=== PATIENT | female | born 1965 | race Caucasian/White ===

== ENCOUNTER 2016-09-28 19:47 | Inpatient (IN) | payer OTHER ==
[2016-09-28 20:28] LABS: MANUAL DIFF NEEDED? NO
[2016-09-28 20:41] LABS: BASO% 0.5 % (0.0-0.8); EOS# 0.01 X1000 (0.0-0.7); EOS% 0.2 % (0.0-10.0); HEMATOCRIT 37.7 % (37.0-47.0); HEMOGLOBIN 12.6 g/dL (12.0-16.0); IMM GRAN# 0.04 X1000 (0.0-0.04); IMM GRAN% 0.6 % (0.0-0.5); LYMPH# 1.08 X1000 (1.2-3.4); LYMPH% 16.3 % (20.5-51.1); MCH 31.5 PG (27-31); MCHC 33.4 g/dL (33-37); MCV 94.3 FL (81-99); MONO# 0.69 X1000 (0.11-0.59); MONO% 10.4 % (1.7-9.3); MPV 9.2 FL (7.4-10.4); PLT 201 X1000 (130-400)
[2016-09-28 20:46] LABS: ALLEN TEST YES; BE -5.5 mmoll (-3.0-3.0); BLOOD TYPE ARTERIAL; DRAW SITE R BRACHIAL; METHB 1.6 % (0.0-1.5); O2(CT) 16.1 mL/dL (15.0-23.0); PCO2(98.6) 34 mmHg (35-45); PO2(98.6) 76 mmHg (60-100); SAMPLE BLOOD; SAO2 97.6 % (95.0-100.0); THB 12.1 g/dL (11.5-17.4); pH(98.6) 7.36 (7.35-7.45)
[2016-09-28 20:47] LABS: MODALITY ROOM AIR
[2016-09-28 20:47] LABS: INR 0.91; PROTIME 9.6 Seconds (9.2-11.7); PTT 21.6 Seconds (22.0-36.0)
--- NOTE | 2016-09-28 20:57 | PROVIDER DOCUMENTATION ---
HPI-General Adult - General Source: patient - History of Present Illness -Gen Adult Nature of Presenting Problems: 51 y/o F presents to the ED with weakness. Pt states she does not feel good. Son is presents and states his mom was last seen normal by him 3 days ago. Yesterday he could really tell she was sick. He states about 2 times a year for the last 2 years pt gets sick and has DKA where she is admitted to the ICU. He states his mom has had at least 20 TIA over the past couple years. Location of Pain/Injury: reports: generalized (not feeling well) Pain Radiation: reports: no radiation Quality of Pain: reports: aching Severity: reports: severe Onset/Duration: reports: 2 days ago Timing: reports: still present, getting worse Context/Activities at Onset: reports: none Modifying Factors: improves with: nothing Associated Symptoms: reports: cough, sinus congestion/drainage, nausea, vomiting , weakness, trouble walking. denies: fever/chills Similar Symptoms Previously?: Yes Recently seen or treated by another doctor?: No - Diabetes Related Context Context: reports: high blood sugar <Arsen Richard - Last Filed: 09/28/16 23:08> <Tad Hung - Last Filed: 09/28/16 23:13> - General Chief Complaint: Weakness Stated Complaint: LT FACIAL PAIN, POSS. STROKE Time Seen by Provider: 09/28/16 20:30 Allergies/Adverse Reactions: Patient Allergies Allergy/AdvReac Type Severity Reaction Status Date / Time No Known Allergies Allergy Verified 09/28/16 20:44 Home Medications: Home Medication List Medication Instructions Recorded Confirmed Last Taken Type Insulin Glargine,Hum.rec.anlog 30 unit SQ QAM 09/28/16 09/28/16 09/28/16 07:00 History [Lantus Solostar] Insulin Lispro [Humalog Kwikpen] 30 unit SQ 4XDAY PRN PRN 09/28/16 09/28/16 Unknown History Review of Systems - Adult - REVIEW OF SYSTEMS - ADULT Constitutional: denies: chills, fever Eyes: reports: no symptoms reported Ears, Nose, Mouth & Throat: reports: no symptoms reported Cardiovascular: denies: chest pain, edema Respiratory: reports: cough. denies: shortness of breath Gastrointestinal: reports: abdominal pain, nausea, vomiting. denies: diarrhea Genitourinary: reports: no symptoms reported Musculoskeletal: reports: muscle weakness. denies: back pain, joint pain Integumentary: reports: no symptoms reported Neurological: reports: loss of balance. denies: slurred speech Psychiatric: reports: no symptoms reported Endocrine: reports: no symptoms reported Hematologic/Lymphatic: reports: no symptoms reported Allergic/Immunologic: reports: no symptoms reported All Other Systems: Reviewed and Negative <Arsen Richard - Last Filed: 09/28/16 23:08> Past History - Adult - PAST MEDICAL HISTORY-ADULT Review of Records: reports: Old Records Reviewed, Nursing Assessment Review, Medications Reviewed Major Childhood Illnesses: reports: denies history Cardiovascular: reports: denies history Respiratory: reports: denies history Gastrointestinal: reports: denies history Obstetrical/Gynecological: reports: other (cervical cancer) Genitourinary: reports: denies history Musculoskeletal: reports: denies history Neurological: reports: Seizures/Epilepsy Psychiatric: reports: anxiety, depression Endocrine/Immune: reports: Diabetes Other Conditions: reports: denies history - PRIOR SURGERIES/PROCEDURES Surgical/Procedure History: reports: cholecystectomy, hysterectomy, breast - IMMUNIZATION STATUS Childhood Immunizations: UTD, See Nurse Assessment Flu Vaccine: See Nurse Assessment - FAMILY HISTORY Family History: HTN - SOCIAL HISTORY Smoking: cigarettes, greater than 1 pack/day Alcohol Use Frequency: rarely Living Situation: family <Arsen Richard - Last Filed: 09/28/16 23:08> Physical Exam-General - PHYSICAL EXAM-ADULT Initial Vital Signs Reviewed: Yes - CONSTITUTIONAL General Appearance: alert. negative: appears well (Ill in appearance) - EYES Eyes: PERRL/EOMI (2mm), pink conjunctivae - HEAD, EARS, NOSE, MOUTH & THROAT HENMT: moist mucous membranes, normal ENT inspection, TMs normal, pharynx normal - NECK Neck: non-tender, full range of motion, supple. negative: lymphadenopathy, trachial deviation - RESPIRATORY Respiratory: lungs clear, normal breath sounds, no respiratory distress, no accessory muscle use, increased rate - CARDIOVASCULAR Cardiovascular: normal peripheral pulses, regular rate, rhythm, tachycardia, systolic murmur (2/5) - GASTROINTESTINAL (ABDOMEN) Abdominal Exam: normal bowel sounds, non tender, soft - MUSCULOSKELETAL Back Exam: normal inspection, no CVA tenderness, no vertebral tenderness Extremity: normal range of motion, non-tender, normal gait - SKIN Integumentary: normal color, normal turgor, warm/dry - NEUROLOGIC Neurologic: facial droop (left sided), 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 negative: aphasia - PSYCHIATRIC Psych/Mental Status: normal thought content, normal thought process, oriented x 3, depressed affect <Arsen Richard - Last Filed: 09/28/16 23:08> Progress - PLAN OF CARE/RESULTS Progress/Plan/Lab Results: Orders Category Date Time Status Cardiac Monitoring DIRECTED Care 09/28/16 19:59 Active FSBS [Finger Stick Blood Sugar (ED)] DIRECTED Care 09/28/16 21:31 Active IV Insertion ORDERED Care 09/28/16 19:59 Active Notify MD of + Sepsis Screen NOW Care 09/28/16 19:59 Active CHEST-PORTABLE [RAD] Stat Exams 09/28/16 19:59 Taken HEAD W/O CONTRAST [CT] Stat Exams 09/28/16 21:27 Taken ABG [RESP] Routine Lab 09/28/16 20:35 Completed BLOOD CULTURE [BLDCUL] Stat Lab 09/28/16 20:40 Results CBC WITH DIFF [HEME] Stat Lab 09/28/16 20:15 Completed CK PROFILE [SP CHEM] Stat Lab 09/28/16 20:15 Completed COMPREHENSIVE METABOLIC PANEL [CHEM] Stat Lab 09/28/16 20:15 Completed LACTATE, PLASMA [CHEM] Stat Lab 09/28/16 20:15 Completed PROTIME WITH INR [COAG] Stat Lab 09/28/16 20:15 Completed PTT [COAG] Stat Lab 09/28/16 20:15 Completed TROPONIN T Stat Lab 09/28/16 20:15 Completed Oxygen Device Stat Oth 09/28/16 19:59 Active Vital Signs Temp Pulse Resp BP Pulse Ox 09/28/16 20:48 82 20 132/78 99 09/28/16 19:52 99.0 F 128 H 32 H 123/68 100 No Known Allergies Allergy (Verified 09/28/16 20:44) Insulin Glargine,Hum.rec.anlog [Lantus Solostar] 30 unit SQ QAM 09/28/16 Insulin Lispro [Humalog Kwikpen] 30 unit SQ 4XDAY PRN PRN 09/28/16 Laboratory 09/28/16 09/28/16 09/28/16 21:05 20:35 20:15 WBC RBC Hgb Hct MCV MCH MCHC RDW Std Deviation Plt Count MPV Immature Gran % (Auto) Neut % (Auto) Lymph % (Auto) Crockett % (Auto) Eos % (Auto) Baso % (Auto) Immature Gran # (Auto) Neut # (Auto) Lymph # (Auto) Crockett # (Auto) Eos # (Auto) Baso # (Auto) PT INR PTT (Actin FS) Specimen Type ARTERIAL Sample Site R BRACHIAL pH 7.36 pCO2 34 L pO2 76 HCO3 20.6 Base Excess -5.5 L Oxyhemoglobin 94.4 L ABG O2 Sat (Calculated) 16.1 ABG O2 Saturation 97.6 ABG Carboxyhemoglobin 1.60 ABG Methemoglobin 1.6 H South Test YES A-a O2 Difference 31.0 Total Hemoglobin 12.1 Lactate 2.30 H Blood Gas Modality ROOM AIR FiO2 % 21.0 Sodium Potassium Chloride Carbon Dioxide Anion Gap BUN Creatinine Estimated GFR/1.73 m2 BUN/Creatinine Ratio Glucose Calculated Osmolality Calcium Total Bilirubin AST ALT Alkaline Phosphatase Creatine Kinase Troponin T < 0.010 Total Protein Albumin Globulin Albumin/Globulin Ratio Plasma Lactate Urine Source CATH Urine Color YELLOW Urine Clarity CLEAR Urine pH 5.5 Ur Specific Powder[place] >= 1.030 Urine Protein TRACE A Urine Ketones >=80 A Urine Blood MODERATE A Urine Nitrite NEGATIVE Urine Bilirubin LARGE A Urine Urobilinogen 1.0 Urine Microscopic RBC 10-20 A Urine WBC NEGATIVE Urine Microscopic WBC <10 Ur Epithelial Cells <10 Urine Bacteria NEGATIVE Urine Glucose 500 A 09/28/16 09/28/16 09/28/16 20:15 20:15 20:15 WBC RBC Hgb Hct MCV MCH MCHC RDW Std Deviation Plt Count MPV Immature Gran % (Auto) Neut % (Auto) Lymph % (Auto) Crockett % (Auto) Eos % (Auto) Baso % (Auto) Immature Gran # (Auto) Neut # (Auto) Lymph # (Auto) Crockett # (Auto) Eos # (Auto) Baso # (Auto) PT 9.6 INR 0.91 PTT (Actin FS) 21.6 L Specimen Type Sample Site pH pCO2 pO2 HCO3 Base Excess Oxyhemoglobin ABG O2 Sat (Calculated) ABG O2 Saturation ABG Carboxyhemoglobin ABG Methemoglobin South Test A-a O2 Difference Total Hemoglobin Lactate Blood Gas Modality FiO2 % Sodium 138 Potassium 4.2 Chloride 89 L Carbon Dioxide 19 L Anion Gap 30 BUN 25 H Creatinine 1.6 H Estimated GFR/1.73 m2 34 BUN/Creatinine Ratio 16 Glucose 128 H Calculated Osmolality 282 Calcium 9.1 Total Bilirubin 0.26 AST 54 H ALT 58 H Alkaline Phosphatase 227 H Creatine Kinase 29 Troponin T Total Protein 6.9 Albumin 4.0 Globulin 2.9 Albumin/Globulin Ratio 1.4 Plasma Lactate 4.1 H Urine Source Urine Color Urine Clarity Urine pH Ur Specific Powder[place] Urine Protein Urine Ketones Urine Blood Urine Nitrite Urine Bilirubin Urine Urobilinogen Urine Microscopic RBC Urine WBC Urine Microscopic WBC Ur Epithelial Cells Urine Bacteria Urine Glucose 09/28/16 20:15 WBC 6.64 RBC 4.00 L Hgb 12.6 Hct 37.7 MCV 94.3 MCH 31.5 H MCHC 33.4 RDW Std Deviation 13.9 Plt Count 201 MPV 9.2 Immature Gran % (Auto) 0.6 H Neut % (Auto) 72.0 Lymph % (Auto) 16.3 L Crockett % (Auto) 10.4 H Eos % (Auto) 0.2 Baso % (Auto) 0.5 Immature Gran # (Auto) 0.04 Neut # (Auto) 4.79 Lymph # (Auto) 1.08 L Crockett # (Auto) 0.69 H Eos # (Auto) 0.01 Baso # (Auto) 0.03 PT INR PTT (Actin FS) Specimen Type Sample Site pH pCO2 pO2 HCO3 Base Excess Oxyhemoglobin ABG O2 Sat (Calculated) ABG O2 Saturation ABG Carboxyhemoglobin ABG Methemoglobin South Test A-a O2 Difference Total Hemoglobin Lactate Blood Gas Modality FiO2 % Sodium Potassium Chloride Carbon Dioxide Anion Gap BUN Creatinine Estimated GFR/1.73 m2 BUN/Creatinine Ratio Glucose Calculated Osmolality Calcium Total Bilirubin AST ALT Alkaline Phosphatase Creatine Kinase Troponin T Total Protein Albumin Globulin Albumin/Globulin Ratio Plasma Lactate Urine Source Urine Color Urine Clarity Urine pH Ur Specific Powderly Urine Protein Urine Ketones Urine Blood Urine Nitrite Urine Bilirubin Urine Urobilinogen Urine Microscopic RBC Urine WBC Urine Microscopic WBC Ur Epithelial Cells Urine Bacteria Urine Glucose - REASSESSMENT Reassessment #1 Time Reassessed: 23:01 Status: unchanged (Pt remains slow to answer questions. Facial droop on the left is the same) - EKG 1 Time of EKG reading by physician:: 20:09 EKG Read and Signed by:: Tad Hung EKG Interpretation (*Must complete 3 of following elements*): Abnormal ( [place]) Rate: 89 Rhythm: NSR Comments: possible left atrial enlargement - XRAY 1 XRAY Study: Chest Impression: Normal XRAY Interpretation: Per Dr Hung, No acute disease - CT/MRI 1 CT Study: Head Impression: Abnormal CT Results: No blood, chronic ischemic areas, minimal sinusitis - CONSULTS/PCP/HOSPITALIST Notification #1 *Consult/PCP/Hospitalist*: dr tellez Time Discussed: 23:08 Reason/Comments: admission; Accepts Consult Disposition: Will see in ED <Arsen Richard - Last Filed: 09/28/16 23:08> Departure <Arsen Richard - Last Filed: 09/28/16 23:08> - Departure Time of Disposition Order: 23:11 Certified Medical Emergency: Emergent <Tad Hung - Last Filed: 09/28/16 23:13> - Departure DIAGNOSIS: Altered mental status Qualifiers: Altered mental status type: disorientation Qualified Code(s): R41.0 - Disorientation, unspecified Disposition: ADMITTED INPATIENT 09 Condition: Fair Referrals: Jose Figueroa Jr, MD [Primary Care Provider] - Attestation - Scribe Verification/Attestation Scribe:: Arsen Richard Acting as Scribe for:: Tad Hung Scribe documention review:: This chart was documented by a scribe and accurately reflects the service the provider performed and the decisions made by the provider. <Arsen Richard - Last Filed: 09/28/16 23:08> Physician Attestation
[2016-09-28 21:03] LABS: CALCIUM 9.1 mg/dL (8.8-10.2); POTASSIUM 4.2 mmol/L (3.5-5.1); TOTAL BILIRUBIN 0.26 mg/dL (0.20-1.00); TOTAL PROTEIN 6.9 g/dL (6.3-8.3)
[2016-09-28 21:06] LABS: URINE SOURCE CATH
[2016-09-28 21:12] LABS: BILIRUBIN URINE LARGE (NEGATIVE); BLOOD URINE MODERATE (NEGATIVE); CLARITY CLEAR (CLEAR); COLOR YELLOW; GLUCOSE URINE 500 mg/dL (NEGATIVE); LEUKOCYTES URINE NEGATIVE (NEGATIVE); NITRITE URINE NEGATIVE (NEGATIVE); PH URINE 5.5; PROTEIN URINE TRACE mg/dL (NEGATIVE); SP GRAVITY URINE >= 1.030
[2016-09-28 21:18] LABS: URINE EPITHELIAL CELLS <10 /HPF (<10); URINE WBC <10 /HPF (<10)
[2016-09-28] MEDS ORDERED: NS 1,000 ML IV ONE (23:34)
[2016-09-28] MEDS ORDERED: ZOFRAN IV ONE (23:34)
[2016-09-28] MEDS ORDERED: MAALOX PLUS LIQUID PO ONE (23:35)
[2016-09-29] MEDS ORDERED: HUMULIN R IV ONE (00:29)
[2016-09-29] MEDS ORDERED: ZOFRAN IV PRN (00:29)
[2016-09-29] MEDS ORDERED: MAGNESIUM SULFATE 2 GM/S.W.I. 50 ML IV PRN (00:29)
[2016-09-29] MEDS ORDERED: TYLENOL PR PRN (00:29)
[2016-09-29] MEDS ORDERED: COMPAZINE IV PRN (00:29)
[2016-09-29] MEDS ORDERED: TYLENOL PO PRN (00:29)
[2016-09-29] MEDS ORDERED: D50W SYRINGE IV PRN (00:29)
[2016-09-29] MEDS: SODIUM CHLORIDE 0.9% INJ SCH ×2 (00:45→23:58)
[2016-09-29] MEDS: PROTONIX IV SCH ×2 (00:45→23:58)
[2016-09-29 01:02] LABS: HEMOGLOBIN A1C 9.5 % (4.8-6.0)
[2016-09-29] MEDS: HUMULIN R 100 UNIT in NS 99 ML IV SCH ×6 (01:25→08:13)
[2016-09-29 01:31] LABS: UR AMPHETAMINES QUAL NONE DETECTED (NONE DETECT); UR BARBITUATES QUAL NONE DETECTED (NONE DETECT); UR BENZODIAZEPIN QUAL NONE DETECTED (NONE DETECT); UR CANNABINOIDS QUAL NONE DETECTED (NONE DETECT); UR COCAINE QUAL NONE DETECTED (NONE DETECT); UR METHADONE QUAL NONE DETECTED (NONE DETECT); UR OPIATES QUAL NONE DETECTED (NONE DETECT); UR OXYCODONE QUAL NONE DETECTED (NONE DETECT); UR PCP QUAL NONE DETECTED (NONE DETECT)
--- NOTE | 2016-09-29 04:04 | HISTORY AND PHYSICAL ---
A patient of Dr. Figueroa. REASON FOR ADMISSION: A 2-day history of intractable nausea, vomiting, polyuria, polydipsia and a 1-day history of right-sided facial weakness and slurred speech. HISTORY OF PRESENT ILLNESS: Ms. Mary Carmen Crouch is a 51-year-old lady with a past medical history of type 1 diabetes, recurrent multiple lacunar infarcts, peripheral arterial disease, hyperlipidemia, and tobacco use. She says that for the last couple of days, she has been persistently sick to her stomach, throwing up which was preceded by epigastric pain, nonradiating, crampy, and sharp. She says that the pain is not related to meals. She denies any diarrhea or altered bowel movements. No coffee-grounds or hematemesis with her vomiting spells. They have getting worse over the last 24 hours. She reports her blood sugars were elevated and she has been adjusting her insulin accordingly. Admits to polyuria and polydipsia over the last 2 or 3 days. Denies any headaches but admits to having intermittent blurred vision and occasional diplopia. She was brought in by a family member who was concerned about her slurred speech and some degree of confusion. Since she has been in the ER, she has had a CT scan of her head done which was not acute process. No change in her prior CT scan findings. CT scan showed her old multiple chronic ischemic microvascular changes, mainly in the right parietal area. REVIEW OF SYSTEMS: The patient denies any cardiorespiratory complaints. No focal weakness, numbness, or tingling other than the aforementioned facial weakness and slurred speech. She denies any dysphagia. Sensorium has improved since she has been in the ER. She is more awake and alert. No genitourinary complaints. No rash or arthralgias. Twelve system review was done, positive findings per HPI. ALLERGIES: None. MEDICATIONS: She apparently is only taking lispro 30 units with meals and Lantus 30 units in the morning. SURGICAL HISTORY: Notable for hysterectomy, cholecystectomy, left CEA, and breast augmentation. FAMILY HISTORY: Notable for type 1 and 2 diabetes in first-degree relatives, a brain aneurysm, and coronary artery disease. No cancer in first-degree relatives. SOCIAL HISTORY: She lives with her son. She is disabled. Smokes about half to one pack a day. No alcohol or illicit drug use. LABORATORY WORK: A 6000 white count, hemoglobin and hematocrit 12 and 37, platelets 201,000 with normal differential. Bicarb is 19, anion gap is 30, BUN is 25, creatinine 1.6. Her usual baseline is about 0.8. Glucose 128. AST 54, ALT 58, alkaline phosphatase 227. Cardiac enzymes negative. Lactate 4.1. PT and PTT normal. Urinalysis shows greater than 80 ketones, moderate blood, large bilirubin, and 10-20 RBCs. Arterial blood gas shows pH of 7.36, pCO2 34, PO2 76. PHYSICAL EXAMINATION: VITAL SIGNS: Blood pressure is 123/68, heart rate is 128, temperature is 99 degrees, respirations 32, 100% on room air. GENERAL: She is a thin, young, woman who is in mild distress from her nausea. She is alert and oriented to person, place, and time. She has somewhat anxious affect and depressed mood. HEENT: Head is normocephalic, atraumatic. Eye examination is anicteric and not pale. 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 Pupils are reactive to light. She has right upper motor neuron facial palsy. No focal weakness of her upper or lower extremities. No pronator drift. Her speech is slightly slurred. ENT and oropharyngeal exam is grossly normal. No central cyanosis. NECK: Supple. No JVD or carotid bruit. No thyromegaly. CHEST: Clear to auscultation with good entry in both lung corrigan. CARDIOVASCULAR: First and second heart sounds heard. No gallops, murmurs, or rubs. Rhythm is regular. ABDOMEN: Scaphoid, soft, with my mild to moderate epigastric tenderness. Abdomen is soft. No rebound, no guarding. No mass was appreciated. Bowel sounds are normal. RECTAL: Examination deferred at this time. EXTREMITIES: Neurovascularly intact. No edema, clubbing, cyanosis. NEUROLOGIC: Examination is grossly intact. No focal deficits. SKIN: Intact with no breakdown, lesions, or erythema. MUSCULAR: Examination is grossly normal. ASSESSMENT: 1. Early diabetic ketoacidosis. 2. Probable early diabetic gastroparesis. 3. Acute kidney injury secondary to #1. 4. Transaminitis, query etiology. 5. Intractable nausea and vomiting secondary to diabetic ketoacidosis and possible gastroparesis. 6. Possible gastritis. PLAN: At this time, we will start patient on DKA protocol but be more conservative with its use. I do believe patient has very early onset DKA and we can initiate DKA protocol. Hopefully, within the next 12 hours, she should be out of DKA. We will hydrate patient per protocol. Patient does have signs of lactic acidosis which I do believe is due to depleted intravascular volume and not sepsis. The patient's neurological signs are probably consistent with some degree of neural glycopenia which is secondary to the fact that this patient may have been used to having very elevated blood sugars for a chronic period of time and even at so-called "normal levels", she might manifest neurological signs of hypoglycemia. We will start the patient on IV PPIs and antiemetics to treat her gastrointestinal symptoms. We will also follow labs closely per protocol and replete any electrolyte derangements. Lovenox will be provided for DVT prophylaxis. A1c has been ordered and if it is grossly elevated, her insulin requirements will need to be adjusted.
[2016-09-29] MEDS: D5 NS 1,000 ML IV SCH ×2 (04:40→05:56)
[2016-09-29] MEDS: LOVENOX SUBQ SCH (06:00)
--- NOTE | 2016-09-29 06:12 | EKG Report ---
Test Performed on : 09/28/2016 8:09:40 PM Test Reason : NO order in [employer] Blood Pressure : / mmHG Vent. Rate : 089 BPM Atrial Rate : 089 BPM P-R Int : 132 ms QRS Dur : 072 ms QT Int : 348 ms P-R-T Axes : 065 071 066 degrees QTc Int : 423 ms Normal sinus rhythm. Possible Left atrial enlargement Borderline ECG When compared with ECG of 13-MAY-2016 13:16, No significant change was found Unconfirmed Result
--- NOTE | 2016-09-29 07:39 | Diag Imaging Result Document ---
PROCEDURE NAME: HEAD W/O CONTRAST - 09/28/2016 CT BRAIN WITHOUT: COMPARISON: Compared to 03/17/2016. FINDINGS: No parenchymal hemorrhage. No epidural or subdural hematoma. No subarachnoid hemorrhage. Old areas of encephalomalacia in posterior right parietal lobe and superior left parietal lobe. No mass identified on this noncontrasted exam. No hydrocephalus. No sinus opacification although there is mucus in the ethmoid and right maxillary sinuses. IMPRESSION: 1. No hemorrhage. 2. Chronic ischemic changes. 3. Mild sinusitis. A preliminary report was given at 10:04 p.m.
--- NOTE | 2016-09-29 08:04 | Diag Imaging Result Document ---
PROCEDURE NAME: CHEST-PORTABLE - 09/28/2016 PORTABLE CHEST: COMPARISON: 05/12/2016. FINDINGS: The lungs are well expanded. The heart is not enlarged. The vessels are not distended. No pneumonia. No pleural effusions identified. IMPRESSION: Negative chest.
[2016-09-29] MEDS ORDERED: ZOFRAN ODT PO PRN (09:27)
[2016-09-29] MEDS: TAMIFLU PO SCH ×2 (10:30→21:04)
[2016-09-29] MEDS: ASPIRIN PO SCH (10:31)
[2016-09-29 10:33] LABS: CALCIUM 7.7 mg/dL (8.8-10.2); MAGNESIUM 1.9 mg/dL (1.5-2.7); POTASSIUM 3.7 mmol/L (3.5-5.1)
[2016-09-29] MEDS: 1/2 NS 1,000 ML IV SCH ×2 (10:35→20:49)
[2016-09-29] MEDS: TAZIDIME 1 GM in NS 50 ML IV SCH ×2 (10:40→17:37)
--- NOTE | 2016-09-29 10:45 | Diag Imaging Result Document ---
PROCEDURE NAME: CHEST-2 VIEWS - 09/29/2016 TWO VIEWS OF THE CHEST: FINDINGS: There is no evidence of acute cardiac or pulmonary disease. Compared to 09/28/2016, there has been no significant change. IMPRESSION: No acute disease.
[2016-09-29] MEDS: HUMULIN R SUBQ SCH ×4 (12:00→22:53)
[2016-09-29] MEDS ORDERED: HUMULIN R ONE (12:04)
[2016-09-29] MEDS ORDERED: PNEUMOVAX 23 IM ONE (16:30)
[2016-09-30] MEDS: TAZIDIME 1 GM in NS 50 ML IV SCH ×3 (01:37→17:40)
[2016-09-30] MEDS: 1/2 NS 1,000 ML IV SCH ×2 (05:34→19:36)
[2016-09-30] MEDS: LOVENOX SUBQ SCH (05:34)
[2016-09-30] MEDS: HUMULIN R SUBQ SCH ×4 (06:31→20:44)
[2016-09-30] MEDS: ASPIRIN PO SCH (09:11)
[2016-09-30] MEDS: TAMIFLU PO SCH (09:13)
[2016-09-30] MEDS ORDERED: DUONEB (A & A) INH PRN (09:23)
--- NOTE | 2016-09-30 09:51 | PROGRESS NOTE ---
DATE: 09/30/2016 SUBJECTIVE: The patient is feeling better. She is hungry. OBJECTIVE: Vital Signs: Blood pressure is 132/78, respirations 16, pulse 61, temperature 97.5 degrees Fahrenheit. HEENT: She is normocephalic except that she has left-sided facial weakness. Neck: Supple. Lungs: The lungs have rales in the bases with wheezing in the right base. Heart: Regular rate and rhythm without murmurs, gallops, or friction rubs. Abdomen: Soft. Active bowel sounds. No organomegaly or tenderness. Neurological: Shows a little weakness in her right upper and right lower extremities, but she has had previous strokes. She does have facial weakness on the left side. She has had some confusion and is still confused about certain things today. She could not tell me what medications at home were. She says that she is having a hard time remembering. I think most likely she has had a CVA that just has not shown up as a new one on her CT scan. ASSESSMENT: 1. Cerebrovascular accident. 2. Insulin dependent diabetes mellitus. 3. Bronchitis. 4. Bronchospasm. 5. Peripheral vascular disease. 6. Hyperlipidemia. PLAN: We will consult neurology. We will move her to the floor and out of the unit. We will continue IV antibiotics. We will start some breathing treatments. We will advance her diet slowly, as blood sugars are fairly stable.
[2016-09-30] MEDS ORDERED: INSULIN PEN NEEDLES ONE (09:54)
[2016-09-30] MEDS: LANTUS SUBQ SCH (10:02)
[2016-09-30 10:42] LABS: CALCIUM 7.8 mg/dL (8.8-10.2); MAGNESIUM 1.9 mg/dL (1.5-2.7); POTASSIUM 4.8 mmol/L (3.5-5.1)
--- NOTE | 2016-09-30 12:13 | CONSULTATION ---
DATE OF CONSULTATION: 09/30/2016 The patient is in ICU Bed 14. HISTORY OF PRESENT ILLNESS: Ms. Crouch is 51 years old, and she has a complicated past neurologic history. Prior to admission this time, she reports feeling ill for a day or 2 with some nausea and vomiting, and she attributed that to catching a virus from her grandson. She felt weak all over and noticed some blurred vision and headache. She presented to the hospital. She was found to have mild right-sided weakness. She has a past neurologic history of unilateral facial drooping 1 year ago. She has had some altered mental status and dysarthria associated with metabolic problems including DKA. The facial drooping has been more prominent in the past associated with DKA. She has brain imaging showing evidence of old left hemisphere infarction on prior MRI. CT scan this admission shows nothing focal or acute. Carotid ultrasound showed significant stenosis on the left during prior admission. She continues to smoke cigarettes. She has diabetes mellitus and is not aggressive with that management. Her blood sugars this admission have ranged from 67 to mid 300s. A1c was 9.5%. She has a few other metabolic findings, including slightly elevated BUN and creatinine, but nothing that generally would cause encephalopathy. Urine drug screen was all negative this admission. PHYSICAL EXAMINATION: On exam, Ms. Crouch is awake, alert, attentive. Speech is slightly dysarthric, but easily understood. She has full lateral and vertical eye movements on my confrontational exam. Visual field is full, tested very grossly by confrontational finger counting. 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 Forehead wrinkling is good bilaterally. She did not use her right limbs as aggressively as the left but with distraction, I am not certain there is a true motor deficit in the right limbs. She did well on [id number] testing bilaterally. She reports diminished pinprick appreciation over the right leg distally with some inconsistencies. I did not test her gait. Reflexes are trace at the ankles and 1+ at the wrists. IMPRESSION: 1. Significant risk factors for cerebrovascular ischemic problems, including imaging evidence of previous left hemisphere infarction. 2. Question of acute ischemic central nervous system event. PLAN: Negative CT is reassuring. I think brain MRI would be helpful in ruling out new ischemic lesion. Of course, she needs to be aggressive with management of blood sugar and medical problems, and she needs to quit smoking cigarettes. Thanks for asking me to see Ms. Crouch. MTDD
--- NOTE | 2016-09-30 13:54 | Diag Imaging Result Document ---
PROCEDURE NAME: MRI BRAIN W W/O CONTRAST - 09/30/2016 MRI OF THE BRAIN WITH AND WITHOUT GADOLINIUM: FINDINGS: There is extensive subcortical white matter hyperintensity on the FLAIR and T2 weighted images in the anterior parietal and adjacent frontal cortex on the convexity of the left hemisphere and in the posterior parietal cortex on the right side. Other patchy areas of increased T2-weighted signal intensities present in the white matter of both hemispheres. These findings were also present on 11/18/2015. There is a focus of restricted diffusion in the posterior centrum semiovale region on the right. This was not present at the time of the previous study, although the previous study demonstrated an area of restricted diffusion on the left side which is no longer identifiable. There is no evidence of abnormal gadolinium enhancement. The area of restricted diffusion on the right corresponds to an area of relatively decreased signal intensity on the T1-weighted images. This is increased in T2 weighted signal intensity, however, and was not identifiable on the previous study of 11/18/2015. IMPRESSION: New lacunar infarction in the right centrum semiovale.
[2016-09-30 14:56] LABS: CALCIUM 7.9 mg/dL (8.8-10.2); MAGNESIUM 1.6 mg/dL (1.5-2.7); POTASSIUM 3.9 mmol/L (3.5-5.1)
[2016-09-30 20:52] LABS: CALCIUM 7.7 mg/dL (8.8-10.2); MAGNESIUM 1.6 mg/dL (1.5-2.7); POTASSIUM 4.2 mmol/L (3.5-5.1)
[2016-10-01] MEDS: SODIUM CHLORIDE 0.9% INJ SCH (00:30)
[2016-10-01] MEDS: PROTONIX IV SCH (00:30)
[2016-10-01] MEDS: TAZIDIME 1 GM in NS 50 ML IV SCH ×3 (02:09→17:11)
[2016-10-01] MEDS: LOVENOX SUBQ SCH (05:52)
[2016-10-01] MEDS: 1/2 NS 1,000 ML IV SCH ×2 (05:52→17:13)
[2016-10-01] MEDS: HUMULIN R SUBQ SCH ×4 (06:24→20:04)
[2016-10-01] MEDS: LANTUS SUBQ SCH (08:49)
[2016-10-01] MEDS ORDERED: LANTUS SUBQ SCH (09:12)
[2016-10-01] MEDS: ASPIRIN PO SCH (09:34)
--- NOTE | 2016-10-01 10:49 | PROGRESS NOTE ---
DATE: 10/01/2016 SUBJECTIVE: The patient is feeling a little bit better. Speech seems a little bit better. The left-sided facial weakness seems somewhat improved. She does show a new lacunar infarct on the right side on her MRI scan. OBJECTIVE: Blood pressure 136/62, respirations 16, pulse 62, temperature 98.5 degrees Fahrenheit. HEENT: She is normocephalic, atraumatic. PERRLA. Throat clear. Lungs have rales in the bases bilaterally. Heart: Regular rate and rhythm without murmurs, gallops, or friction rubs. Abdomen soft. Active bowel sounds. No organomegaly or tenderness. Neurologic: Exam shows weakness in the left facial area. ASSESSMENT: 1. Cerebrovascular accident. 2. Uncontrolled diabetes. 3. Bronchitis. PLAN: Continue care. Carotid flow studies have been ordered by Neurology. She did have some just a few months ago as she had a carotid endarterectomy not too long ago. Continue support.
--- NOTE | 2016-10-01 11:23 | Carotid Study ---
DATE: 09/30/2016 PROCEDURE: Carotid duplex imaging. REFERRING PHYSICIAN: Dr. Ram INTERPRETING PHYSICIAN: Dr. Astudillo TECH: Marcos INDICATIONS: Previous comparison from 03/17/2016. 1. Recent left carotid endarterectomy (04/06/2016). 2. History of cerebrovascular accident. OBSERVED DATA RIGHT LEFT Brachial Blood Pressure Carotid Pulse Bruits: Carotid/Sub DIAGRAM OF ULTRASOUND IMAGING R L RIGHT INT EXT INT EXT LEFT Man (cm/s) Man (cm/s) Subclavian 107/0 Subclavian 113/0 CCA Proximal 94/11 CCA Proximal 90/12 CCA Distal 79/13 CCA Distal 82/12 Bulb 75/15 Bulb 113/4 ICA Proximal 73/10 ICA Proximal 66/21 ICA Mid 65/19 ICA Mid 62/19 ICA Distal 48/14 ICA Distal 68/22 ECA 136/7 ECA 168/4 Vertebral 38/0 A Vertebral 34/6 A ICA/CCA Ratio 0.78 ICA/CCA Ratio 0.76 % Stenosis 0 to 39 % Stenosis 0 to 39 FINDINGS: No hemodynamically significant flow limiting stenosis noted to the right side which is stable from previous study. The left side, which had the previous carotid endarterectomy, is widely patent. Both vertebral arteries were antegrade flow. PHYSICIAN INTERPRETATION: Patent left carotid endarterectomy without hemodynamically significant flow limiting stenosis noted to bilateral carotid arteries. Both vertebral arteries are antegrade flow.
[2016-10-02] MEDS: 1/2 NS 1,000 ML IV SCH (00:48)
[2016-10-02] MEDS: PROTONIX IV SCH (00:48)
[2016-10-02] MEDS: SODIUM CHLORIDE 0.9% INJ SCH (00:48)
[2016-10-02] MEDS: TAZIDIME 1 GM in NS 50 ML IV SCH (01:02)
[2016-10-02] MEDS ORDERED: ZOFRAN ODT PO PRN (06:23)
[2016-10-02] MEDS ORDERED: TYLENOL PO PRN (06:36)
[2016-10-02] MEDS ORDERED: TYLENOL PR PRN (06:36)
[2016-10-02] MEDS ORDERED: DUONEB (A & A) INH PRN (06:37)
[2016-10-02] MEDS ORDERED: D50W SYRINGE IV PRN (06:40)
[2016-10-02] MEDS ORDERED: ZOFRAN IV PRN (06:42)
[2016-10-02] MEDS ORDERED: PNEUMOVAX 23 IM ONE (06:45)
[2016-10-02] MEDS ORDERED: LOVENOX SUBQ SCH (07:00)
[2016-10-02] MEDS ORDERED: HUMULIN R SUBQ SCH (07:00)
[2016-10-02] MEDS ORDERED: 1/2 NS 1,000 ML IV SCH (07:00)
[2016-10-02 08:35] VITALS: BP 157/64
[2016-10-02] MEDS ORDERED: ASPIRIN PO SCH ×2 (09:00→09:51)
[2016-10-02] MEDS ORDERED: TAZIDIME 1 GM in NS 50 ML IV SCH (10:00)
--- NOTE | 2016-10-03 05:04 | DISCHARGE SUMMARY ---
ADMISSION DATE: 09/29/2016 DISCHARGE DATE: 10/02/2016 FINAL DIAGNOSES: 1. Cerebrovascular accident in the right centrum semiovale. 2. Bronchitis. 3. Altered mental status. 4. Uncontrolled adult onset diabetes mellitus. 5. Impending diabetic ketoacidosis. 6. Peripheral vascular disease. Patient will be going home on her regular home medications, but will increase her aspirin to 325 mg daily and we will place her on doxycycline 100 mg p.o. b.i.d. for 10 days for her bronchitis. PRESENT ILLNESS: The patient came in with altered mental status, nausea, and vomiting. She had left-sided facial weakness. She did have a cerebrovascular accident according to the MRI scan. We know she has peripheral vascular disease. Did carotid flow studies and found nothing new. She had a recent left carotid endarterectomy. Because she was feeling so tired, she told me she was aching all over, we did check her for influenza but that was negative. Blood cultures were negative. Anion gap was 30. Initially she was placed on an insulin drip because urinalysis showing greater than 80 ketones and with an anion gap I thought that she has an impending diabetic ketoacidosis. They stopped that fairly quickly as she remained with fairly normal blood sugars. She has continued to do well with her blood sugars. While in the hospital she did develop some bronchitis with some rales in her chest and a little bit wheezing, that is just about resolved. Lungs are clear today. Her intractable nausea when went very quickly. The facial weakness has improved considerably. Consultation was made with Dr. Ram of Neurology. Overall, has improved. The patient is eager to go home. She is eating now. We will discharge her home and see her back in the office later this week. She is to call for an appointment on Monday, which is tomorrow.
[2016-10-03] MEDS ORDERED: PROTONIX IV SCH (06:00)
[2016-10-03] MEDS ORDERED: SODIUM CHLORIDE 0.9% INJ SCH (06:00)
== END 2016-10-02 12:14 | disposition home or self-care (01) | DRG 65 ==
LOC: ED 19:47 → EDIPHOLD 09-29 00:28 → ICU 09-29 13:30 → 4N 10-02 01:10
PROVIDERS: ADMIT Internal Medicine; ATTEND Emergency Medicine
DX: I63.9 Cerebral infarction, unspecified (principal); N17.9 Acute kidney failure, unspecified; E87.2 Acidosis; E10.51 Type 1 diabetes mellitus with diabetic peripheral angiopathy without gangrene; G81.91 Hemiplegia, unspecified affecting right dominant side; E10.65 Type 1 diabetes mellitus with hyperglycemia; E78.5 Hyperlipidemia, unspecified; J40 Bronchitis, not specified as acute or chronic; R29.810 Facial weakness; R47.1 Dysarthria and anarthria; E86.9 Volume depletion, unspecified; F17.210 Nicotine dependence, cigarettes, uncomplicated; Z79.899 Other long term (current) drug therapy; Z79.4 Long term (current) use of insulin; Z86.73 Personal history of transient ischemic attack (TIA), and cerebral infarction without residual deficits; Z83.3 Family history of diabetes mellitus; Z82.49 Family history of ischemic heart disease and other diseases of the circulatory system
CPT/HCPCS: 70450; 70553; 71010; 71020; 80048; 80053; 80061; 81001; 82550; 82805; 82948; 83036; 83605; 83721; 83735; 84100; 84484; 85025; 85610; 85730; 87040; 87088; 87804; 93005; 93880; 94640; 94761; 96361; 96365; 96366; 96367; 96368; 96372; 96375; A9579; C9113; G0480; J0713; J1650; J2405; J7030; J7042; P9612; 80324; 80345; 80346; 80349; 80353; 80358; 80361; 80365; 83992; S0164

== ENCOUNTER 2017-01-30 17:54 | Inpatient (IN) ==
[2017-01-30] MEDS ORDERED: HUMULIN R IV ONE ×3 (18:21→21:39)
[2017-01-30] MEDS ORDERED: NS 1,000 ML IV ONE ×3 (18:22→20:48)
[2017-01-30 18:36] LABS: ALLEN TEST YES; BE -23.5 mmoll (-3.0-3.0); BLOOD TYPE ARTERIAL; DRAW SITE R RADIAL; O2(CT) 17.7 mL/dL (15.0-23.0); PCO2(98.6) 22 mmHg (35-45); PO2(98.6) 91 mmHg (60-100); SAMPLE BLOOD; SAO2 97.5 % (95.0-100.0); THB 13.2 g/dL (11.5-17.4)
[2017-01-30 18:37] LABS: MODALITY ROOM AIR; pH(98.6) 7.03 (7.35-7.45)
[2017-01-30] MEDS ORDERED: HUMULIN R 100 UNIT in NS 100 ML IV SCH (19:30)
[2017-01-30 20:10] LABS: URINE CULTURE NEEDED? NO; URINE MICRO REVIEW NEEDED? NO; URINE SOURCE CATH
[2017-01-30 20:11] LABS: BASO% 0.4 % (0.0-0.8); EOS# 0.01 X1000 (0.0-0.7); EOS% 0.1 % (0.0-10.0); HEMATOCRIT 41.4 % (37.0-47.0); HEMOGLOBIN 12.6 g/dL (12.0-16.0); IMM GRAN# 0.06 X1000 (0.0-0.04); IMM GRAN% 0.4 % (0.0-0.5); LYMPH# 0.96 X1000 (1.2-3.4); LYMPH% 6.6 % (20.5-51.1); MANUAL DIFF NEEDED? NO; MCHC 30.4 g/dL (33-37); MCV 101.7 FL (81-99); MONO% 2.1 % (1.7-9.3); MPV 10.3 FL (7.4-10.4); NEUT% 90.4 % (42.2-75.2); PLT 272 X1000 (130-400); RBC 4.07 XMIL (4.2-5.4)
[2017-01-30 20:18] LABS: ACETONE SERUM MODERATE (NEGATIVE)
[2017-01-30 20:19] LABS: BILIRUBIN URINE NEGATIVE (NEGATIVE); BLOOD URINE NEGATIVE (NEGATIVE); COLOR STRAW; GLUCOSE URINE >1000 mg/dL (NEGATIVE); LEUKOCYTES URINE NEGATIVE (NEGATIVE); NITRITE URINE NEGATIVE (NEGATIVE); PROTEIN URINE NEGATIVE (NEGATIVE); SP GRAVITY URINE 1.019; TURBIDITY URINE CLEAR (CLEAR); UR EPITHELIAL CELLS <10 /HPF (<10); URINE BACTERIA NEGATIVE /HPF; URINE RBC <10 /HPF (<10); URINE WBC <10 /HPF (<10); UROBILINOGEN URINE NORMAL (NORMAL)
[2017-01-30 20:26] LABS: UR AMPHETAMINES QUAL NONE DETECTED (NONE DETECT); UR BARBITUATES QUAL NONE DETECTED (NONE DETECT); UR BENZODIAZEPIN QUAL NONE DETECTED (NONE DETECT); UR CANNABINOIDS QUAL NONE DETECTED (NONE DETECT); UR COCAINE QUAL NONE DETECTED (NONE DETECT); UR METHADONE QUAL NONE DETECTED (NONE DETECT); UR OPIATES QUAL NONE DETECTED (NONE DETECT); UR OXYCODONE QUAL NONE DETECTED (NONE DETECT); UR PCP QUAL NONE DETECTED (NONE DETECT)
--- NOTE | 2017-01-30 20:26 | PROVIDER DOCUMENTATION ---
This chart was entered by Alexsandra Armas Scribe, acting as scribe for Tad Hung MD. HPI-General Adult - General Chief Complaint: High Blood Sugar Stated Complaint: STROKE LIKE SX Time Seen by Provider: 01/30/17 19:03 Source: patient Allergies/Adverse Reactions: Patient Allergies Allergy/AdvReac Type Severity Reaction Status Date / Time No Known Allergies Allergy Verified 09/28/16 20:44 Home Medications: Home Medication List Medication Instructions Recorded Confirmed Last Taken Type Insulin Glargine,Hum.rec.anlog 10 unit SQ QAM 09/28/16 09/30/16 09/28/16 07:00 History [Lantus Solostar] Insulin Lispro [Humalog Kwikpen 24 unit SQ 4XDAY PRN PRN 09/28/16 09/30/16 Unknown History U-100] Insulin Glargine [Lantus] 35 unit SUBQ QHS 09/30/16 09/30/16 Unknown History Losartan [Cozaar] 50 mg PO DAILY 09/30/16 09/30/16 Unknown History Aspirin 325 mg PO DAILY #0 tablet 10/02/16 Unknown Rx Doxycycline [Vibramycin] 100 mg PO DAILY #20 tablet NS 10/02/16 Unknown Rx - History of Present Illness -Gen Adult Nature of Presenting Problems: Pt is a 51 year old female who came to the ED with a cc of left sided facial droop, slurred speech, and vomiting. Pt has a hx of DKA and TIA. Location of Pain/Injury: reports: face Pain Radiation: reports: no radiation Quality of Pain: reports: none Onset/Duration: reports: just prior to arrival Timing: reports: still present Context/Activities at Onset: reports: none Modifying Factors: improves with: nothing Associated Symptoms: reports: nausea, vomiting, weakness Similar Symptoms Previously?: Yes Recently seen or treated by another doctor?: Yes - Diabetes Related Context Context: reports: high blood sugar, prior DKA hospitalization Review of Systems - Adult - REVIEW OF SYSTEMS - ADULT Constitutional: denies: chills, fever Eyes: reports: no symptoms reported Ears, Nose, Mouth & Throat: reports: no symptoms reported Cardiovascular: reports: no symptoms reported Respiratory: reports: no symptoms reported Gastrointestinal: reports: nausea, vomiting. denies: difficulty swallowing, frequent heartburn Genitourinary: reports: no symptoms reported Musculoskeletal: reports: no symptoms reported Integumentary: reports: no symptoms reported Neurological: reports: numbness, other (facial droop). denies: loss of balance , seizure Psychiatric: reports: no symptoms reported Endocrine: reports: other (high blood sugar). denies: change in skin pigment, increased thirst Hematologic/Lymphatic: reports: no symptoms reported Allergic/Immunologic: reports: no symptoms reported All Other Systems: Reviewed and Negative Past History - Adult - PAST MEDICAL HISTORY-ADULT Review of Records: reports: Nursing Assessment Review Major Childhood Illnesses: reports: denies history Cardiovascular: reports: hyperlipidemia Respiratory: reports: asthma Gastrointestinal: reports: denies history Obstetrical/Gynecological: reports: other (cervical cancer) Genitourinary: reports: denies history Musculoskeletal: reports: denies history Neurological: reports: Seizures/Epilepsy Psychiatric: reports: anxiety, depression Endocrine/Immune: reports: Diabetes Other Conditions: reports: denies history - PRIOR SURGERIES/PROCEDURES Surgical/Procedure History: reports: cholecystectomy, hysterectomy, breast - IMMUNIZATION STATUS Childhood Immunizations: UTD, See Nurse Assessment Flu Vaccine: See Nurse Assessment - FAMILY HISTORY Family History: HTN Physical Exam-General - PHYSICAL EXAM-ADULT Initial Vital Signs Reviewed: Yes - CONSTITUTIONAL General Appearance: mild distress, obtunded - EYES Eyes: other (pupils 3cm) - HEAD, EARS, NOSE, MOUTH & THROAT HENMT: normocephalic/atraumatic, moist mucous membranes - NECK Neck: non-tender, full range of motion - RESPIRATORY Respiratory: chest non-tender, lungs clear - CARDIOVASCULAR Cardiovascular: normal peripheral pulses, regular rate, rhythm - GASTROINTESTINAL (ABDOMEN) Abdominal Exam: normal bowel sounds, non tender, soft - LYMPHATIC Lymphatic: no adenopathy - MUSCULOSKELETAL Back Exam: normal inspection, no CVA tenderness Extremity: no pedal edema, other (poor capillary refill in her toes six seconds) . negative: normal capillary refill - SKIN Integumentary: normal color, normal turgor - NEUROLOGIC Neurologic: grossly normal - PSYCHIATRIC Psych/Mental Status: normal mood/affect, normal thought content, normal thought process Progress - PLAN OF CARE/RESULTS Progress/Plan/Lab Results: Vital Signs - 8 hr 01/30/17 18:09 Temperature 97.7 F Pulse Rate 120 H Respiratory Rate 16 Blood Pressure 135/42 O2 Sat by Pulse Oximetry 96 Laboratory Results - last 24 hr 01/30/17 18:25 Specimen Type ARTERIAL Sample Site R RADIAL pH 7.03 L* pCO2 22 L pO2 91 HCO3 6.5 L Base Excess -23.5 L Oxyhemoglobin 95.0 ABG O2 Sat (Calculated) 17.7 ABG O2 Saturation 97.5 ABG Carboxyhemoglobin 1.50 ABG Methemoglobin 1.0 South Test YES A-a O2 Difference 31.0 Total Hemoglobin 13.2 Lactate 5.40 H* Blood Gas Modality ROOM AIR FiO2 % 21.0 Orders Category Date Time Status HEAD W/O CONTRAST [CT] Stat Exams 01/30/17 18:32 Taken ABG [RESP] Routine Lab 01/30/17 18:25 Completed ACETONE SERUM [CHEM] Stat Lab 01/30/17 18:20 Uncollected ALCOHOL BLOOD Stat Lab 01/30/17 18:20 Uncollected CBC WITH DIFF [HEME] Stat Lab 01/30/17 18:20 Uncollected COMPREHENSIVE METABOLIC PANEL [CHEM] Stat Lab 01/30/17 18:20 Uncollected UA NIMS W/REFLEX CULT [URINALYSIS] Stat Lab 01/30/17 18:20 Uncollected URINE DRUG SCREEN Stat Lab 01/30/17 18:20 Uncollected 0.9% Sodium Chloride Inj [Ns] 1,000 ml Med 01/30/17 18:22 Active IV 999 mls/hr Insulin Human Regular [Humulin R] Med 01/30/17 18:21 Discontinued 10 unit IV NOW ONE Result Diagrams: 01/30/17 19:17 01/30/17 19:17 Departure - Departure Date of Disposition Decision: 01/30/17 Time of Disposition Decision: 20:23 DIAGNOSIS: DKA (diabetic ketoacidoses) Qualifiers: Diabetes mellitus type: type 1 Diabetes mellitus complication detail: with coma Qualified Code(s): E10.11 - Type 1 diabetes mellitus with ketoacidosis with coma Disposition: ADMITTED INPATIENT 09 Certified Medical Emergency: Emergent Condition: Poor Referrals and Follow-Ups: Jose Figueroa Jr, MD [Primary Care Provider] - - Critical Care Note This patient required my direct & personal management of CC.: Yes Total Time (mins): 45 Critical Care Statement: This patient required my direct personal management to treat or rule out processes, the absence of which, could potentiallly result in sudden, clinically significant life or limb threatening deterioration. Comments: Started EJ line and discussed critical nature of disease with patient. This chart was documented by the indicated scribe, (Alexsandra Armas Scribe) and accurately reflects the services I performed and decisions made by me, Tad Hung MD, as attested by the provider's signature.
[2017-01-30] MEDS ORDERED: ZOFRAN ONE (20:30)
[2017-01-30] MEDS ORDERED: NS 1,000 ML ONE (20:31)
[2017-01-30 20:45] LABS: AGAP 45; ALBUMIN 3.9 g/dL (3.5-5.0); ALKALINE PHOSPHATASE 141 U/L (32-104); BUN 30 mg/dL (8-22); CHLORIDE 77 mmol/L (98-107); COSMO 319; GOT 20 U/L (10-30); GPT 20 U/L (10-36); SODIUM 129 mmol/L (136-145); TCO2 7 mmol/L (25-35); TOTAL BILIRUBIN 0.27 mg/dL (0.20-1.00); TOTAL PROTEIN 6.6 g/dL (6.3-8.3)
[2017-01-30 20:46] LABS: POTASSIUM 6.1 mmol/L (3.5-5.1)
[2017-01-30] MEDS ORDERED: ZOFRAN IV ONE (20:48)
--- NOTE | 2017-01-30 22:01 | HISTORY AND PHYSICAL ---
Patient of REASON FOR ADMISSION: Polyuria, polydipsia, nausea, vomiting for the last 3 days. HISTORY OF PRESENT ILLNESS: Ms. Mary Carmen Crouch is a 51-year-old with history of type 1 diabetes, prior CVAs, peripheral artery disease, tobacco use, hyperlipidemia, status post left CEA. Comes in today complaining of intractable nausea, vomiting and on 2 separate occasions she recalls having coffee grounds. She has vomited an average of 5 times a day for the last 3 days, unable to take anything orally. Despite this she is still taking her Lantus but says over 48 hours she has been profoundly thirsty and polyuric. She also complains of being generally weak. Complains of epigastric pain which was initially intermittent but now constant for the last 24 hours. No diarrhea, hematochezia or melenic stools. No fever or chills. No genitourinary complaints. No cardiorespiratory complaints or new neurological complaints. No diplopia or blurred vision. No focal weakness, numbness or tingling. Patient is adamant that she is compliant to her medication and her medication dose has not changed thus far. No contacts anybody with any GI symptoms. REVIEW OF SYSTEMS: Fourteen systems negative. Positive findings per HPI. ALLERGIES: None. MEDICATIONS: She takes aspirin 325 mg daily, insulin glargine as Lantus 25 units q.a.m. and lispro 24 units 4 times a day with meals. FAMILY HISTORY: Unchanged from a HPI done on September 2006 and positive for diabetes, brain aneurysm, coronary artery disease. SOCIAL HISTORY: Still smokes about a half to 1 pack a day. Lives with her son. She is currently disabled, no alcohol, illicit drug use. SURGICAL HISTORY: No change, left CEA, cholecystectomy, hysterectomy and breast augmentation. LAB WORK: EKG is pending at this time. Troponin is also pending. White count 14,000, hemoglobin and hematocrit 12 and 41, platelets 272,000. Sodium 129, potassium 6.1, bicarb 7, anion gap of 45, BUN 30, creatinine 2.0, glucose 1170, alkaline phosphatase 141. Urine drug screen is negative. Acetone is moderate. Urinalysis, greater than 1000 glucose, ketones 100. Blood gas 7.03, pCO2 22, PO2 91, bicarb is 6.5, lactate 5.4. Head CT was done because patient was very lethargic and drowsy and showed stable chronic changes otherwise nil of note. PHYSICAL EXAMINATION: GENERAL: Middle-aged woman who is extremely lethargic, drowsy, arousable and oriented to person, place, and time with normal mood and affect. HEENT: Head is normocephalic, atraumatic. TIFFANIE, EOMI, she is anicteric, not pale. ENT exam is grossly normal except for dry oral mucosa. There is no cyanosis. NECK: Supple. No JVD or carotid bruit. No thyromegaly. CHEST: Clear to auscultation. Good air entry in both lung corrigan. CARDIOVASCULAR: First and sounds heard. No gallops, murmurs, rubs. Rhythm is regular. ABDOMEN: Full, soft with localized epigastric tenderness. No rebound or guarding. Bowel sounds are normal. No bruit heard. RECTAL EXAM: Deferred. EXTREMITIES: No edema clubbing, cyanosis. NEURO: No focal deficits. SKIN: Decreased skin turgor but otherwise no breakdown, lesion, erythema. MUSCULOSKELETAL: Exam is grossly normal. ASSESSMENT: At this time. 1. Diabetic ketoacidosis. 2. Acute on chronic kidney injury secondary to #1. 3. Peripheral artery disease. 4. Prior cerebrovascular accident. 5. Probable gastritis. PLAN: At this time start patient on DKA protocol. Aggressive fluid resuscitation will be initiated. Due to patient's history of peripheral arterial disease I think it will be prudent to include statin therapy in addition to aspirin. Check A1c. On record her last A1c was 9.5. Her LDL at that time she was notably elevated at 134 with triglycerides 299. This definitely begs for appropriate treatment with statins. DVT prophylaxis will be initiated and IV H2 blockers be initiated. Other symptomatic measures include Tylenol, antiemetics. CRITICAL CARE TIME THIS PATIENT: Will be estimated about 32 minutes. cc: Fadi Nava MD
[2017-01-30] MEDS ORDERED: TYLENOL PO PRN (23:06)
[2017-01-30] MEDS ORDERED: SODIUM CHLORIDE 0.9% INJ ONE (23:06)
[2017-01-30] MEDS ORDERED: HUMULIN R 100 UNIT in NS 99 ML IV SCH (23:40)
[2017-01-30] MEDS ORDERED: MAGNESIUM SULFATE 2 GM/S.W.I. 2 GM/50 ML IVPB IV PRN (23:40)
[2017-01-30] MEDS ORDERED: COMPAZINE IV PRN (23:40)
[2017-01-30] MEDS ORDERED: D50W SYRINGE IV PRN (23:40)
[2017-01-30] MEDS ORDERED: SODIUM PHOSPHATE 30 MMOL in D5W 250 ML IV PRN (23:40)
[2017-01-31 00:08] LABS: ALLEN TEST YES; BE -13.1 mmoll (-3.0-3.0); BLOOD TYPE ARTERIAL; DRAW SITE R BRACHIAL; METHB 1.4 % (0.0-1.5); O2(CT) 14.9 mL/dL (15.0-23.0); PCO2(98.6) 26 mmHg (35-45); PO2(98.6) 115 mmHg (60-100); SAMPLE BLOOD; SAO2 98.9 % (95.0-100.0); THB 10.8 g/dL (11.5-17.4); pH(98.6) 7.28 (7.35-7.45)
[2017-01-31 00:10] LABS: MODALITY CANNULA
[2017-01-31] MEDS: NS 1,000 ML IV SCH ×3 (00:13→03:51)
[2017-01-31] MEDS: PEPCID IV SCH ×3 (00:14→22:15)
[2017-01-31] MEDS: LOVENOX SUBQ SCH ×2 (00:14→22:15)
[2017-01-31] MEDS: ZOFRAN IV PRN ×2 (00:14→23:08)
[2017-01-31] MEDS ORDERED: PNEUMOVAX 23 IM ONE (01:33)
[2017-01-31 01:41] LABS: CALCIUM 8.3 mg/dL (8.8-10.2); MAGNESIUM 1.8 mg/dL (1.5-2.7)
[2017-01-31] MEDS: POTASSIUM CHLORIDE 10 MEQ in D5 NS 1,000 ML IV SCH ×4 (01:58→20:45)
[2017-01-31] MEDS ORDERED: POTASSIUM CHLORIDE 10 MEQ in NS 1,000 ML IV SCH ×2 (02:00→03:00)
[2017-01-31 05:22] LABS: MANUAL DIFF NEEDED? NO
[2017-01-31 05:50] LABS: ALLEN TEST YES; BE -4.6 mmoll (-3.0-3.0); BLOOD TYPE ARTERIAL; DRAW SITE R RADIAL; METHB 1.4 % (0.0-1.5); MODALITY CANNULA; O2(CT) 14.2 mL/dL (15.0-23.0); PCO2(98.6) 36 mmHg (35-45); PO2(98.6) 122 mmHg (60-100); SAMPLE BLOOD; SAO2 98.7 % (95.0-100.0); THB 10.3 g/dL (11.5-17.4); pH(98.6) 7.36 (7.35-7.45)
[2017-01-31 05:58] LABS: AGAP 16; ALKALINE PHOSPHATASE 91 U/L (32-104); BASO% 0.1 % (0.0-0.8); BUN 17 mg/dL (8-22); CALCIUM 7.4 mg/dL (8.8-10.2); CHLORIDE 108 mmol/L (98-107); COSMO 290; EOS# 0.01 X1000 (0.0-0.7); EOS% 0.1 % (0.0-10.0); GOT 16 U/L (10-30); GPT 14 U/L (10-36); HEMATOCRIT 29.4 % (37.0-47.0); HEMOGLOBIN 10.1 g/dL (12.0-16.0); IMM GRAN# 0.03 X1000 (0.0-0.04); IMM GRAN% 0.3 % (0.0-0.5); LYMPH# 1.73 X1000 (1.2-3.4); MAGNESIUM 1.5 mg/dL (1.5-2.7); MCH 31.1 PG (27-31); MCHC 34.4 g/dL (33-37); MCV 90.5 FL (81-99); MONO# 1.07 X1000 (0.11-0.59); MONO% 9.3 % (1.7-9.3); MPV 9.1 FL (7.4-10.4); NEUT% 75.2 % (42.2-75.2); PLT 182 X1000 (130-400); RBC 3.25 XMIL (4.2-5.4); SODIUM 144 mmol/L (136-145); TCO2 20 mmol/L (25-35); TOTAL BILIRUBIN < 0.10 mg/dL (0.20-1.00); TOTAL PROTEIN 4.8 g/dL (6.3-8.3)
--- NOTE | 2017-01-31 06:32 | EKG Report ---
Test Performed on : 01/30/2017 6:27:59 PM Test Reason : Repeat Blood Pressure : / mmHG Vent. Rate : 099 BPM Atrial Rate : 099 BPM P-R Int : 148 ms QRS Dur : 078 ms QT Int : 336 ms P-R-T Axes : 069 070 045 degrees QTc Int : 431 ms Normal sinus rhythm. Nonspecific ST abnormality Abnormal ECG When compared with ECG of 28-SEP-2016 20:09, Nonspecific T wave abnormality no longer evident in Anterior leads Unconfirmed Result
--- NOTE | 2017-01-31 07:26 | Diag Imaging Result Doc PS360 ---
EXAM: HEAD W/O CONTRAST HISTORY: ams TECHNIQUE: CT of the head without contrast COMMENT: There is no evidence of mass effect bleed or abnormal extra-axial fluid collection. There is a lacunae in the centrum semiovale on the right as well as some cortical and subcortical lucency in the convexity of the parietal lobe. These abnormalities were also apparently present on 09/27/2016. The visualized paranasal sinuses are clear. There is no evidence of acute bony disease. IMPRESSION: Chronic ischemic change in the right parietal lobe. No evidence of acute intracranial disease. Electronically signed by Nilson Chadwick 01/31/2017 7:24 AM
[2017-01-31] MEDS ORDERED: MISC. PHARMACY COMMUNICATION SCH (08:45)
[2017-01-31] MEDS ORDERED: POTASSIUM CHLORIDE 20 MEQ/SWI 20 MEQ/100 ML IVPB IV ONE ×2 (09:08→15:33)
[2017-01-31] MEDS: ASPIRIN PO SCH (09:22)
[2017-01-31 09:24] LABS: CALCIUM 7.2 mg/dL (8.8-10.2); MAGNESIUM 1.5 mg/dL (1.5-2.7); POTASSIUM 3.7 mmol/L (3.5-5.1)
[2017-01-31 14:58] LABS: CALCIUM 7.4 mg/dL (8.8-10.2); MAGNESIUM 2.1 mg/dL (1.5-2.7); POTASSIUM 4.6 mmol/L (3.5-5.1)
[2017-01-31] MEDS ORDERED: BLISTEX MEDICATED BERRY LIP BALM TOP PRN (16:47)
--- NOTE | 2017-01-31 18:50 | PROGRESS NOTE ---
DATE: 01/31/2017 Level 3 documentation. Patient was admitted last night for altered mental status, type 1 diabetes, full blown DKA by Dr. Nava. I have not seen this patient before. Covering for Dr. Figueroa. Patient was evaluated in the step-down unit. PAST MEDICAL HISTORY, PAST SURGICAL HISTORY, AND MEDICINES: Were reviewed. REVIEW OF SYSTEMS: Patient extremely feeble. Able to follow with verbal comments. Upon questioning no vision problems.Cardiopulmonary: No chest pain, shortness of breath, PND, orthopnea. GI: No nausea, vomiting, decreasing and no dysuria. A George catheter was seen. No swelling of feet. Neurological: No neurological symptoms or weakness. PHYSICAL EXAMINATION: Vital Signs: Low-grade fever. Vitals are stable on 2 L of nasal cannula 100%. HEENT Exam: Awake, within normal limits. Neck: Supple. Chest: Bilateral air entry. Heart: Sounds are regular. Abdomen: Belly is soft, nontender. Good bowel sounds. George catheter was placed. Extremities: No peripheral edema, cyanosis. Neurologic: No neurological deficits. CT head was negative. Chronic ischemic changes in the right parietal lobe. Electrocardiogram, sinus tachycardia, nothing acute. LABS: CBC: White cell count 11, hematocrit 29, platelets 182,000. ABG, pH is 7.36, pCO2 36, PO2 122 on 28%. SMA 7: Sodium 138, potassium 4.6, chloride 105 and BUN is 12. Creatinine 1.1. Anion gap is 16. Glucose 240. Phosphorus 1.9. Calcium 7.4. Total protein 4.3. Urinalysis is clear. Ketones were present. ASSESSMENT AND PLAN: 1. History of chronic CVA on the right parietal lobe. Stable. 2. Type 1 diabetes, with DKA. Continue on the IV fluids decreased to 150 from 250 to 100 mL/hour. Continue on insulin drip 1 unit/hour. Started with Lantus tonight and slowly discontinue the insulin drip in the morning. 3. Deep venous thrombosis prophylaxis with Lovenox. 4. Gastrointestinal prophylaxis with intravenous Pepcid. 5. Electrolytes. Continue to monitor potassium, magnesium and phosphate. Also look for the source of infection. No family was there at the bedside. Level of documentation is 35 minutes. cc: MD Jose Nash Jr, MD
[2017-01-31] MEDS ORDERED: SODIUM PHOSPHATE 30 MMOL in D5W 250 ML IV PRN (19:54)
[2017-01-31] MEDS ORDERED: SODIUM CHLORIDE 0.9% 10 ML ONE (20:10)
[2017-01-31 20:48] LABS: CALCIUM 7.6 mg/dL (8.8-10.2); MAGNESIUM 2.1 mg/dL (1.5-2.7); POTASSIUM 4.7 mmol/L (3.5-5.1)
[2017-01-31] MEDS ORDERED: LANTUS SUBQ SCH (21:00)
[2017-02-01 03:35] LABS: CALCIUM 7.3 mg/dL (8.8-10.2); MAGNESIUM 2.1 mg/dL (1.5-2.7); POTASSIUM 4.2 mmol/L (3.5-5.1)
[2017-02-01] MEDS: POTASSIUM CHLORIDE 10 MEQ in D5 NS 1,000 ML IV SCH ×2 (05:09→12:55)
[2017-02-01] MEDS: LANTUS SUBQ SCH (08:14)
[2017-02-01] MEDS ORDERED: LIPITOR PO SCH (09:00)
--- NOTE | 2017-02-01 09:09 | PROGRESS NOTE ---
DATE: 02/01/2017 SUBJECTIVE: The patient is more alert than yesterday. Blood pressure is stable. Complains of sore throat. Denies of any other symptoms. PHYSICAL EXAMINATION: Vital Signs: Low-grade fever. Temperature is 98 degrees, blood pressure is 117/57, 131 pounds, 2 L nasal cannula 100% oxygen. HEENT Examination: Within normal limits. Oral thrush present. Neck: Supple. No lymphadenopathy. Chest: Clear to auscultation. Heart: Heart sounds are regular. Abdomen: Belly is soft, nontender. Good bowel sounds. No masses palpable. Extremities: No peripheral edema or cyanosis. Neurologic: No obvious neurological deficits. INVESTIGATIONS: SMA 7: Sodium 140, potassium 4.2, chloride 109, BUN 7, creatinine 1.1, anion gap 12, glucose 118, calcium 7.3, phosphorus 1.1, magnesium 2.1. ASSESSMENT AND PLAN: 1. Diabetic ketoacidosis, resolving. Decrease the D5 half-normal saline to 50 mL per hour. 2. Advance the diet to 1800 calorie, [place] [employer] diet. 3. Initiate Lantus 20 units in the morning and 10 in the evening. 4. Oral thrush. Nystatin as directed. 5. Hypophosphatemia. Replace the sodium phosphate, two doses today. LEVEL OF DOCUMENTATION: 25 minutes. cc: MD Jose Nash Jr, MD
[2017-02-01 09:39] LABS: AGAP 10; BUN 6 mg/dL (8-22); CALCIUM 7.4 mg/dL (8.8-10.2); CHLORIDE 112 mmol/L (98-107); COSMO 284; MAGNESIUM 2.1 mg/dL (1.5-2.7); SODIUM 144 mmol/L (136-145); TCO2 22 mmol/L (25-35)
[2017-02-01] MEDS ORDERED: HUMALOG SUBQ SCH (12:00)
[2017-02-01] MEDS: SODIUM PHOSPHATE 30 MMOL in D5W 250 ML IV PRN ×2 (12:52→20:17)
[2017-02-01] MEDS: ASPIRIN PO SCH (12:54)
[2017-02-01] MEDS: HUMALOG SUBQ SCH ×3 (12:55→20:42)
[2017-02-01] MEDS ORDERED: SODIUM CHLORIDE 0.9% 10 ML ONE (13:02)
[2017-02-01] MEDS: MYCOSTATIN SUSP PO SCH ×4 (13:05→20:43)
[2017-02-01] MEDS: PEPCID IV SCH ×2 (13:05→22:31)
[2017-02-01 16:03] LABS: CALCIUM 7.6 mg/dL (8.8-10.2); MAGNESIUM 1.9 mg/dL (1.5-2.7); POTASSIUM 4.2 mmol/L (3.5-5.1)
[2017-02-01] MEDS: SODIUM CHLORIDE 0.9% INJ SCH (22:31)
[2017-02-01] MEDS: LOVENOX SUBQ SCH (22:31)
[2017-02-02] MEDS ORDERED: AYR NASAL SPRAY NAS PRN (01:19)
[2017-02-02] MEDS: POTASSIUM CHLORIDE 10 MEQ in D5 NS 1,000 ML IV SCH (02:02)
[2017-02-02] MEDS: HUMALOG SUBQ SCH ×4 (06:00→21:17)
[2017-02-02] MEDS ORDERED: NS IV ONE (08:20)
[2017-02-02] MEDS ORDERED: POTASSIUM PHOSPHATE IV ONE (08:20)
[2017-02-02] MEDS ORDERED: INSULIN PEN NEEDLES ONE (09:29)
[2017-02-02] MEDS: LANTUS SUBQ SCH (09:45)
[2017-02-02] MEDS: ASPIRIN PO SCH (09:45)
[2017-02-02] MEDS: MYCOSTATIN SUSP PO SCH ×4 (09:45→21:20)
[2017-02-02] MEDS: SODIUM CHLORIDE 0.9% INJ SCH ×2 (12:37→22:39)
[2017-02-02] MEDS: PEPCID IV SCH ×2 (12:37→22:39)
[2017-02-02] MEDS: LOVENOX SUBQ SCH (22:39)
--- NOTE | 2017-02-03 04:32 | PROGRESS NOTE ---
DATE: 02/02/2017 SUBJECTIVE: Patient is more alert, and eating very well. Painful swallowing is improving. REVIEW OF SYSTEMS: None reported. No sore throat. No cough. No GI symptoms. No UTI symptoms. PHYSICAL EXAMINATION: Vital Signs: Stable. HEENT: Oral thrush present. Neck: Supple. No lymphadenopathy. Chest: Clear. Heart: Sounds are regular. Abdomen: Belly is soft, nontender. Good bowel sounds. No masses palpable. No peripheral edema, cyanosis. No obvious neurological deficits. INVESTIGATIONS: None. Blood sugar is 246. ASSESSMENT AND PLAN: 1. Diabetic ketoacidosis is resolving. Plan is discontinue IV fluids. Advance diet. Continue on insulin Lantus 20 units in the morning. 2. Deep venous thrombosis prophylaxis with Lovenox. 3. Oral thrush, on nystatin. 4. Hypophosphatemia, replaced with K-Phos. 5. Repeat the labs in the morning: A1c, CBC, BMP, and phosphorus. LEVEL OF DOCUMENTATION: 25 minutes. cc: MD Jose Nash Jr, MD
[2017-02-03 05:35] LABS: HEMATOCRIT 31.8 % (37.0-47.0); HEMOGLOBIN 10.6 g/dL (12.0-16.0); MCH 31.2 PG (27-31); MCHC 33.3 g/dL (33-37); MCV 93.5 FL (81-99); MPV 9.4 FL (7.4-10.4); RBC 3.4 XMIL (4.2-5.4)
[2017-02-03 05:46] LABS: HEMOGLOBIN A1C 9.8 % (4.8-6.0)
[2017-02-03 06:02] LABS: AGAP 10; BUN 13 mg/dL (8-22); CALCIUM 7.7 mg/dL (8.8-10.2); CHLORIDE 109 mmol/L (98-107); COSMO 288; POTASSIUM 4.1 mmol/L (3.5-5.1); SODIUM 146 mmol/L (136-145); TCO2 27 mmol/L (25-35)
[2017-02-03] MEDS ORDERED: D50W SYRINGE IV ONE (06:28)
[2017-02-03] MEDS: HUMALOG SUBQ SCH ×4 (07:32→22:03)
[2017-02-03] MEDS: ASPIRIN PO SCH (08:45)
[2017-02-03] MEDS: MYCOSTATIN SUSP PO SCH ×4 (08:46→22:04)
[2017-02-03] MEDS: LANTUS SUBQ SCH ×2 (08:48→22:14)
[2017-02-03] MEDS: PEPCID IV SCH ×2 (11:30→22:04)
[2017-02-03] MEDS: SODIUM CHLORIDE 0.9% INJ SCH ×2 (11:30→22:04)
--- NOTE | 2017-02-03 18:17 | PROGRESS NOTE ---
DATE: 02/03/2017 SUBJECTIVE: Patient is more alert and eating very well. REVIEW OF SYSTEMS: None reported. OBJECTIVE: Vitals: Are stable. HEENT: Exam. Oral thrush is improving. Neck: Supple. Chest: Clear to auscultation. Heart: Sounds are regular. Abdomen: Belly is soft, nontender. Good bowel sounds. Neurological: No neurological deficits. Blood sugars are slowly dropping. INVESTIGATIONS: White cell count 5.5, hematocrit 31, platelets 127. SMA-7: Sodium 146, potassium 4.1, chloride 109, BUN 13, creatinine 0.7, anion gap is 10, glucose this morning 45. A1c 9.8, phosphorus is normal. ASSESSMENT AND PLAN: 1. Diabetic ketoacidosis, resolving. 2. Oral thrush, is getting better. 3. Uncontrolled diabetes. Discussed with the patient. Change the Lantus 10 units subcu twice daily. Continue deep vein thrombosis, gastrointestinal prophylaxis. Out of the bed. If the blood sugars are stable next 24 hours, we will discharge in the morning and follow up with Dr. Figueroa. LEVEL OF DOCUMENTATION: 25 minutes. cc: MD Jose Nash Jr, MD
[2017-02-03] MEDS: LOVENOX SUBQ SCH (22:04)
[2017-02-04] MEDS: HUMALOG SUBQ SCH (06:29)
[2017-02-04 07:45] VITALS: BP 131/56
[2017-02-04] MEDS: LANTUS SUBQ SCH (08:34)
[2017-02-04] MEDS: ASPIRIN PO SCH (08:34)
[2017-02-04] MEDS: MYCOSTATIN SUSP PO SCH (08:34)
[2017-02-04] MEDS ORDERED: PNEUMOVAX 23 IM ONE (09:16)
--- NOTE | 2017-02-05 06:11 | DISCHARGE SUMMARY ---
ADMISSION DATE: 01/30/2017 DISCHARGE DATE: 02/04/2017 DISCHARGE DIAGNOSIS: Diabetic ketoacidosis. SECONDARY DIAGNOSES: 1. History of cerebrovascular accident on the right side without any deficits. 2. Tobacco abuse. 3. Hyperlipidemia. 4. Status post left carotid endarterectomy. BRIEF HISTORY: Please see the H and P that was done by Dr. Nava. In brief, she is a 51-year- old, white female with a known history of type 1 diabetes, poorly controlled. She presented to the hospital with altered mental status due to DKA. HOSPITAL COURSE: The patient was admitted in [facility] with DKA protocol. Followup electrolytes were monitored particularly which includes potassium, calcium, magnesium, phosphate. Patient has oral thrush which was treated with nystatin. She is tolerating the diet very well. At the time of discharge, the labs were as follows. CBC: White cell count 5.5, hematocrit 32, platelet count 127,000. SMA-7: Sodium 146, potassium 4.1, chloride 109, BUN 13, creatinine 0.7, glucose 144, A1c 9.8. CT of head, chronic ischemic changes in the right parietal area. DISCHARGE INSTRUCTIONS: 1. Abstain from smoking. 2. Pneumococcal vaccine 02/04/2017. 3. Control A1c close to 7, LDL less than 100. 4. Continue on aspirin 81 mg daily and change the Lantus 10 units subcutaneous b.i.d. along with sliding scale with insulin coverage. 5. She also needs to followup with Dr. Figueroa about hyperlipidemia management, for underlying peripheral vascular disease, and prior CVA, and also evaluation of her nephropathy. She is going to make an appointment to see Dr. Figueroa on Monday. Follow up in his office on 02/08/2017. cc: MD Jose Nash Jr, MD
== END 2017-02-04 10:47 | disposition home or self-care (01) ==
LOC: ED 17:54 → SUATTDRO 22:19 → 3S 22:19
PROVIDERS: ADMIT Emergency Medicine; ATTEND Emergency Medicine

== ENCOUNTER 2018-08-14 19:04 | Inpatient (IN) ==
[2018-08-14] MEDS ORDERED: NS 1,000 ML IV ONE ×2 (19:57→21:49)
[2018-08-14] MEDS ORDERED: HUMULIN R IV ONE (19:57)
[2018-08-14] MEDS ORDERED: ZOFRAN IV ONE (20:00)
[2018-08-14 20:06] LABS: BASO# 0.08 X1000 (0.0-0.2); BASO% 0.6 % (0.0-0.8); EOS# 0.02 X1000 (0.0-0.7); EOS% 0.2 % (0.0-10.0); HEMATOCRIT 41.6 % (37.0-47.0); HEMOGLOBIN 13.9 g/dL (12.0-16.0); IMM GRAN# 0.05 X1000 (0.0-0.04); IMM GRAN% 0.4 % (0.0-0.5); LYMPH# 1.18 X1000 (1.2-3.4); MCH 30.5 PG (27-31); MCHC 33.4 g/dL (33-37); MCV 91.2 FL (81-99); MONO# 0.75 X1000 (0.11-0.59); MONO% 5.7 % (1.7-9.3); MPV 10.7 FL (7.4-10.4); NEUT% 84.1 % (42.2-75.2); PLT 243 X1000 (130-400); RBC 4.56 XMIL (4.2-5.4); RDW 12.8 % (11.5-14.5); WBC 13.08 X1000 (4.8-10.8)
[2018-08-14] MEDS ORDERED: HUMULIN R (PARKWAY) ONE ×2 (20:50→21:14)
[2018-08-14 20:51] LABS: BE -20.7 mmoll (-3.0-3.0); BLOOD TYPE ARTERIAL; HCO3-(ACT) 8.4 mmoll (20.0-26.0); METHB 0.5 % (0.0-1.5); O2(CT) 15.2 mL/dL (15.0-23.0); PCO2(98.6) 30 mmHg (35-45); PO2(98.6) 50 mmHg (60-100); SAMPLE BLOOD; SAO2 84.6 % (95.0-100.0); THB 13.2 g/dL (11.5-17.4)
[2018-08-14 20:54] LABS: ALLEN TEST YES; MODALITY ROOM AIR
[2018-08-14 20:55] LABS: BE -21.6 mmoll (-2.0-2.0); BLOOD TYPE VENOUS; HCO3-(ACT) 7.7 mmoll (22-27); PCO2(98.6) 31 mmHg (40-60); PO2(98.6) 63 mmHg (30-55); SAMPLE BLOOD; SAO2 89.6 % (40.0-85.0)
[2018-08-14 20:57] LABS: CREATININE 2.1 mg/dL (0.5-0.9); TOTAL BILIRUBIN 0.3 mg/dL (0.20-1.00); TOTAL PROTEIN 7.1 g/dL (6.3-8.3)
[2018-08-14 20:58] LABS: O2HB 82.1 % (95.0-99.0); pH(98.6) 7.06 (7.35-7.45)
[2018-08-14] MEDS ORDERED: ROCEPHIN 1 GM in NS 50 ML IV ONE (20:58)
[2018-08-14 20:59] LABS: pH(98.6) 7.03 (7.32-7.43)
[2018-08-14] MEDS ORDERED: HUMULIN R (PARKWAY) 100 UNITS in NS 100 ML IV SCH (21:00)
[2018-08-14 21:17] LABS: POTASSIUM 6.8 mmol/L (3.5-5.1)
[2018-08-14 21:18] LABS: ACETONE SERUM LARGE (NEGATIVE)
[2018-08-14] MEDS ORDERED: SODIUM BICARBONATE 8.4% IV PUSH ONE (21:18)
[2018-08-14 21:23] LABS: MAGNESIUM 2.6 mg/dL (1.5-2.7)
--- NOTE | 2018-08-14 21:28 | Diag Imaging Result Doc PS360 ---
EXAM: CHEST-PORTABLE HISTORY: sob TECHNIQUE: Portable chest single view COMPARISON: 07/21/2018 FINDINGS: The lungs are well expanded. The heart is not enlarged. The vessels are not distended. There are no infiltrates. No effusion identified. IMPRESSION: Negative exam. Electronically signed by Josh Jackson 08/14/2018 9:26 PM
[2018-08-14] MEDS ORDERED: D5 1/2 NS 250 ML IV ONE (23:50)
[2018-08-15 00:19] LABS: BILIRUBIN URINE NEGATIVE (NEGATIVE); BLOOD URINE NEGATIVE (NEGATIVE); CLARITY CLEAR (CLEAR); COLOR YELLOW; KETONE URINE 3+(Large) mg/dL (NEGATIVE); LEUKOCYTES URINE NEGATIVE (NEGATIVE); NITRITE URINE NEGATIVE (NEGATIVE); PROTEIN URINE TRACE mg/dL (NEGATIVE); SP GRAVITY URINE 1.015; URINE SOURCE CLEAN CATCH; UROBILINOGEN URINE NORMAL
[2018-08-15 00:20] LABS: URINE BACTERIA 1+ /HFP; URINE EPITHELIAL CELLS <10 /HPF (<10); URINE RBC <10 /HPF (<10); URINE WBC <10 /HPF (<10)
[2018-08-15 00:25] LABS: UR AMPHETAMINES QUAL NONE DETECTED (NONE DETECT); UR BARBITUATES QUAL NONE DETECTED (NONE DETECT); UR BENZODIAZEPIN QUAL NONE DETECTED (NONE DETECT); UR CANNABINOIDS QUAL NONE DETECTED (NONE DETECT); UR COCAINE QUAL PRESUMPTIVE POSITIVE (NONE DETECT); UR METHADONE QUAL NONE DETECTED (NONE DETECT); UR METHAMPHETAMINE QUAL NONE DETECTED (NONE DETECT); UR OPIATES QUAL NONE DETECTED (NONE DETECT); UR OXYCODONE QUAL NONE DETECTED (NONE DETECT); UR PCP QUAL NONE DETECTED (NONE DETECT); UR PROPOXYPHENE QUAL NONE DETECTED (NONE DETECT); UR TCA QUAL NONE DETECTED (NONE DETECT)
[2018-08-15] MEDS: HUMULIN R (PARKWAY) IV ONE ×4 (01:59→05:06)
[2018-08-15] MEDS ORDERED: D5 1/2 NS 250 ML ONE (04:58)
[2018-08-15 08:08] LABS: HEMATOCRIT 33.7 % (37.0-47.0); HEMOGLOBIN 11.6 g/dL (12.0-16.0); MCH 29.8 PG (27-31); MCHC 34.4 g/dL (33-37); MCV 86.6 FL (81-99); MPV 9.5 FL (7.4-10.4); RBC 3.89 XMIL (4.2-5.4); RDW 12.1 % (11.5-14.5); WBC 16.3 X1000 (4.8-10.8)
[2018-08-15 08:15] LABS: ALBUMIN 3.6 g/dL (3.5-5.0); CALCIUM 8.4 mg/dL (8.8-10.2); CREATININE 1.9 mg/dL (0.5-0.9); MAGNESIUM 2.1 mg/dL (1.5-2.7); PHOSPHORUS 3.1 mg/dL (2.7-4.5); TOTAL BILIRUBIN 0.2 mg/dL (0.20-1.00); TOTAL PROTEIN 6.3 g/dL (6.3-8.3)
[2018-08-15] MEDS ORDERED: ZOFRAN IV PRN (08:22)
[2018-08-15] MEDS ORDERED: TYLENOL PO PRN (08:22)
[2018-08-15] MEDS: NS 1,000 ML IV SCH ×2 (08:50→23:13)
[2018-08-15] MEDS ORDERED: HUMALOG (PARKWAY) SUBQ SCH (11:00)
[2018-08-15 12:59] LABS: CALCIUM 7.8 mg/dL (8.8-10.2); CREATININE 1.7 mg/dL (0.5-0.9); MAGNESIUM 1.9 mg/dL (1.5-2.7); PHOSPHORUS 2.6 mg/dL (2.7-4.5)
[2018-08-15] MEDS ORDERED: HUMALOG DOSE (PARKWAY) SUBQ SCH (13:11)
[2018-08-15] MEDS: KEPPRA PO SCH ×2 (14:10→23:12)
[2018-08-15] MEDS: HUMALOG DOSE (PARKWAY) SUBQ SCH ×2 (17:15→23:12)
[2018-08-15] MEDS ORDERED: BASAGLAR SUBQ ONE (21:18)
[2018-08-15] MEDS ORDERED: KEPPRA PO SCH (21:30)
--- NOTE | 2018-08-16 02:10 | HISTORY AND PHYSICAL ---
CHIEF COMPLAINT: Elevated blood sugar. HISTORY OF PRESENT ILLNESS: Patient is a 53-year-old female who unfortunately has an known history of DKA and has been admitted multiple times with such. She presented to the ER after blood sugars have been reading high for the past 3 days. Denies any fevers or chills. Denies any cough or congestion. ALLERGIES: No known drug allergies. MEDICATIONS: Lantus 12 units q.a.m., lispro Humalog 5 units subcutaneous 3 times a day. REVIEW OF SYSTEMS: Patient notes that she has been having nausea, vomiting, abdominal pain, polyuria. She has not been feeling well. She has had slurred speech for the past few days. Denies any headaches, blurred vision, change in vision. Denies any focalized weakness. Denies any hematochezia, melena, hematemesis, hemoptysis. PAST MEDICAL HISTORY: Hypertension, COPD, cervical cancer by history, history of strokes, seizures, depression and diabetes. She has had a cholecystectomy, hysterectomy and breast augmentation. FAMILY HISTORY: Positive for hypertension. SOCIAL HISTORY: Patient lives at home. Continues to smoke. Denies alcohol. Denies other illicit substances. PHYSICAL EXAMINATION: Temperature 99 degrees, pulse 114, respiratory 22, BP 144/76, saturation 100% on room air. GENERAL: Patient is awake, alert. She is disoriented, confused. Speech is slowed. HEENT: Normocephalic, atraumatic. TIFFANIE. NECK: Supple. CARDIOVASCULAR: Regular rate. No murmurs. CHEST: Clear and nonlabored. ABDOMEN: Soft, nondistended, nontender. EXTREMITIES: Moves all extremities. LABS: Glucose 1141 initially, sodium 126, potassium 6.8, creatinine 2.1. Follow-up glucose is 200, potassium 5.4. ASSESSMENT: 1. Diabetic ketoacidosis, currently has resolved. Patient's blood sugars are improved. Her bicarbonate is at 24. 2. Hyperkalemia, improved. 3. Marked hyperglycemia. 4. Acute renal failure. 5. Medical noncompliance. PLAN: We will admit patient to the hospital. At this point we will stop her insulin drip as she has improved and place her on her home insulin levels, continue sliding scale insulin and we will follow. cc: Yonny Ramsey MD
[2018-08-16] MEDS: HUMALOG DOSE (PARKWAY) SUBQ SCH ×4 (06:31→21:31)
[2018-08-16 07:01] LABS: HEMATOCRIT 30.5 % (37.0-47.0); MCH 29.4 PG (27-31); MCHC 32.8 g/dL (33-37); MCV 89.7 FL (81-99); MPV 9.6 FL (7.4-10.4); RBC 3.4 XMIL (4.2-5.4); RDW 12.9 % (11.5-14.5); WBC 11.05 X1000 (4.8-10.8)
[2018-08-16 07:33] LABS: ALBUMIN 2.9 g/dL (3.5-5.0); CALCIUM 7.9 mg/dL (8.8-10.2); POTASSIUM 4.2 mmol/L (3.5-5.1); TOTAL BILIRUBIN 0.2 mg/dL (0.20-1.00)
[2018-08-16] MEDS ORDERED: VANCOMYCIN IV PER PHARMACY MISC SCH (09:15)
[2018-08-16] MEDS ORDERED: VANCOMYCIN 1,250 MG in NS 250 ML IV ONE (11:00)
[2018-08-16] MEDS ORDERED: ZOSYN 3.375 GM in NS 50 ML IV SCH (11:15)
[2018-08-16] MEDS: KEPPRA PO SCH ×2 (11:15→21:30)
[2018-08-16] MEDS: NS 1,000 ML IV SCH (13:27)
[2018-08-16] MEDS ORDERED: BASAGLAR SUBQ ONE (18:21)
[2018-08-16] MEDS ORDERED: INSULIN PEN NEEDLES MISC PRN (18:23)
[2018-08-17] MEDS: NS 1,000 ML IV SCH (03:14)
--- NOTE | 2018-08-17 03:55 | PROGRESS NOTE ---
DATE: 08/16/2018 SUBJECTIVE: Patient has no new complaints. Notes that she is starting to eat better. PHYSICAL EXAMINATION: Vital Signs: Temperature 98 degrees, pulse 59, respiratory 18, BP 107/56. General: Patient is awake, alert. She is much more oriented. She is in no current distress. HEENT: Normocephalic. Neck: Supple. CARDIOVASCULAR: Regular rate. Chest: Clear. Abdomen: Soft, nondistended. ASSESSMENT: 1. Blood culture is abnormal, /. 2. Diabetic ketoacidosis, resolved. 3. Hyperkalemia, resolved. 4. Hyperglycemia, improving. 5. Acute renal failure. PLAN: We will continue patient in the hospital. Continue pain control, IV fluids and we will follow. cc: Yonny Ramsey MD
[2018-08-17 07:12] LABS: HEMATOCRIT 32.5 % (37.0-47.0); HEMOGLOBIN 10.5 g/dL (12.0-16.0); MCH 29.2 PG (27-31); MCHC 32.3 g/dL (33-37); MCV 90.5 FL (81-99); MPV 9.6 FL (7.4-10.4); RBC 3.59 XMIL (4.2-5.4); RDW 12.7 % (11.5-14.5); WBC 6.93 X1000 (4.8-10.8)
[2018-08-17 07:26] LABS: AGAP 9; BUN 16 mg/dL (8-22); CALCIUM 7.9 mg/dL (8.8-10.2); CHLORIDE 109 mmol/L (98-107); COSMO 286; CREATININE 0.8 mg/dL (0.5-0.9); ESTIMATED GFR > 60; GLUCOSE 104 mg/dL (70-104); POTASSIUM 4.1 mmol/L (3.5-5.1); SODIUM 143 mmol/L (136-145); TCO2 24 mmol/L (25-35)
[2018-08-17 07:46] VITALS: BP 125/63
[2018-08-17] MEDS ORDERED: HUMALOG DOSE (PARKWAY) SUBQ SCH (08:00)
[2018-08-17] MEDS: HUMALOG DOSE (PARKWAY) SUBQ SCH (08:41)
[2018-08-17] MEDS ORDERED: BASAGLAR SUBQ SCH (09:00)
[2018-08-17] MEDS: KEPPRA PO SCH (09:24)
[2018-08-17] MEDS ORDERED: FLU VACCINE IM ONE (10:25)
[2018-08-17] MEDS ORDERED: VANCOMYCIN 1 GM/NS 1 GM/250 ML IVPB IV SCH (11:00)
--- NOTE | 2018-08-18 07:00 | DISCHARGE SUMMARY ---
ADMISSION DATE: 08/14/2018 DISCHARGE DATE: 08/17/2018 DISCHARGE DIAGNOSES: 1. Diabetic ketoacidosis, resolved. 2. Diabetes with very poor home control. 3. Hyperkalemia. 4. Acute renal failure. 5. Others. CONSULTATIONS: None. PROCEDURES: None. BRIEF HOSPITAL COURSE: Patient is a 53-year-old female, who presented to the hospital, treated in the usual fashion, placed on antibiotics secondary to an abnormal blood culture. This finally grew out as coag-negative staph and was a contaminant. Therefore, antibiotics were stopped. She was placed on Lantus as well as sliding scale insulin. However, over the next 2 days, her acidosis resolved. Her blood sugars drop in the low 200s to upper 100s. Thankfully, she had no further complications. She will be discharged home. DISPOSITION: Patient will be discharged home. Will continue current home doses of insulin. Again, I discussed patient that it is imperative that she take her insulin at home. cc: Yonny Ramsey MD
== END 2018-08-17 12:00 | disposition home health service (06) | DRG 638 ==
LOC: P.ED 19:04 → P.EDIPHOLD 22:14 → P.MEDSURG 08-15 09:49
PROVIDERS: ATTEND Family Medicine
CPT/HCPCS: 71010; 71045; 80048; 80053; 80104; 80301; 80305; 81001; 82009; 82805; 82948; 83605; 83735; 84100; 85025; 85027; 87040; 90686; 93005; 96361; 96365; 96366; 96367; 96375; 99285; A9270; G0431; G0434; G0477; J0696; J1815; J2405; J3370; J7030; J7050; XXXXX

== ENCOUNTER 2018-11-23 19:34 | Inpatient (IN) ==
[2018-11-23] MEDS ORDERED: ZOFRAN IV ONE (19:49)
[2018-11-23] MEDS ORDERED: NS 1,000 ML IV ONE ×2 (19:49→21:09)
[2018-11-23 20:26] LABS: ALLEN TEST YES; BE -3.3 mmoll (-3.0-3.0); BLOOD TYPE ARTERIAL; HCO3-(ACT) 22.3 mmoll (20.0-26.0); METHB 1.5 % (0.0-1.5); O2(CT) 17.3 mL/dL (15.0-23.0); O2HB 95.6 % (95.0-99.0); PCO2(98.6) 29 mmHg (35-45); PO2(98.6) 104 mmHg (60-100); SAMPLE BLOOD; SAO2 98.1 % (95.0-100.0); THB 12.8 g/dL (11.5-17.4); pH(98.6) 7.44 (7.35-7.45)
[2018-11-23 20:27] LABS: MODALITY ROOM AIR
[2018-11-23 20:34] LABS: BASO# 0.03 X1000 (0.0-0.2); BASO% 0.3 % (0.0-0.8); EOS# 0.02 X1000 (0.0-0.7); EOS% 0.2 % (0.0-10.0); HEMATOCRIT 39.9 % (37.0-47.0); HEMOGLOBIN 13.3 g/dL (12.0-16.0); IMM GRAN# 0.02 X1000 (0.0-0.04); IMM GRAN% 0.2 % (0.0-0.5); LYMPH# 2.49 X1000 (1.2-3.4); LYMPH% 21.9 % (20.5-51.1); MCH 29.9 PG (27-31); MCHC 33.3 g/dL (33-37); MCV 89.7 FL (81-99); MONO# 0.63 X1000 (0.11-0.59); MONO% 5.5 % (1.7-9.3); MPV 10.1 FL (7.4-10.4); NEUT# 8.19 X1000 (1.4-6.5); NEUT% 71.9 % (42.2-75.2); PLT 160 X1000 (130-400); RBC 4.45 XMIL (4.2-5.4); RDW 12.8 % (11.5-14.5); WBC 11.38 X1000 (4.8-10.8)
[2018-11-23 20:55] LABS: AGAP 22; ALB/GLOB RATIO 1.6; ALBUMIN 4.3 g/dL (3.5-5.0); ALKALINE PHOSPHATASE 126 U/L (32-104); BUN 22 mg/dL (8-22); CALCIUM 9.6 mg/dL (8.8-10.2); CHLORIDE 96 mmol/L (98-107); COSMO 284; CREATININE 1.7 mg/dL (0.5-0.9); ESTIMATED GFR 31; GLUCOSE 160 mg/dL (70-104); GOT 20 U/L (10-30); GPT 12 U/L (10-36); POTASSIUM 5.5 mmol/L (3.5-5.1); SODIUM 139 mmol/L (136-145); TCO2 21 mmol/L (25-35); TOTAL BILIRUBIN < 0.15 mg/dL (0.20-1.00)
[2018-11-23 22:22] LABS: URINE SOURCE CLEAN CATCH
[2018-11-23 22:36] LABS: BILIRUBIN URINE MODERATE (NEGATIVE); BLOOD URINE TRACE (NEGATIVE); COLOR YELLOW; GLUCOSE URINE 1000 mg/dL (NEGATIVE); KETONE URINE 150 mg/dL (NEGATIVE); LEUKOCYTES URINE NEGATIVE (NEGATIVE); NITRITE URINE NEGATIVE (NEGATIVE); PH URINE 5.5; PROTEIN URINE TRACE mg/dL (NEGATIVE); SP GRAVITY URINE 1.012; TURBIDITY URINE CLEAR (CLEAR); UR EPITHELIAL CELLS <10 /HPF (<10); URINE BACTERIA NEGATIVE /HPF; URINE RBC <10 /HPF (<10); URINE WBC <10 /HPF (<10); UROBILINOGEN URINE 4 mg/dL (NORMAL)
[2018-11-24 00:12] LABS: CREATININE 1.4 mg/dL (0.5-0.9); POTASSIUM 4.4 mmol/L (3.5-5.1)
[2018-11-24] MEDS ORDERED: NS 1,000 ML IV ONE (00:18)
--- NOTE | 2018-11-24 00:46 | PROVIDER DOCUMENTATION ---
This chart was entered by Marielena Maxwell Scribe, acting as scribe for Roc Linder MD. HPI-General Adult - General Chief Complaint: Nausea/Vomiting Stated Complaint: NAUSEA, WEAK, BRITTLE DIABETIC, LETHARGIC Time Seen by Provider: 11/23/18 19:48 Source: patient Allergies/Adverse Reactions: Patient Allergies Allergy/AdvReac Type Severity Reaction Status Date / Time No Known Allergies Allergy Verified 11/23/18 20:27 Home Medications: Home Medication List Medication Instructions Recorded Confirmed Last Taken Type Insulin Glargine [Lantus] 12 unit SUBQ QAM #1 insuln.pen 03/26/18 08/15/18 Unknown Rx Insulin Lispro [Humalog] 5 unit SQ TID #1 cartridge 03/26/18 08/15/18 Unknown Rx Levetiracetam [Keppra] 750 mg PO BID 08/15/18 08/15/18 Unknown History Promethazine [Phenergan] 25 mg PO PRN PRN 11/23/18 11/23/18 11/23/18 20:29 Hist ory - History of Present Illness -Gen Adult Nature of Presenting Problems: Pt is 53/F presenting to ED W/ c/o high blood sugar. Pt was brought in by family who sts that she goes into DKA a couple of times a year. Pt has recently been sick w/ cold sx and has not been feeling well. Family sts that she has not eaten since around 4:30 yesterday and that she has not been able to check her blood sugar because she is out of the strips for her machine. Pt is slurred, but is answering questions. Sts that she is a IDDM and took insulin [employer]. Onset/Duration: reports: 3 days ago Timing: reports: still present, getting worse Context/Activities at Onset: reports: none Modifying Factors: improves with: nothing Associated Symptoms: reports: nausea, vomiting. denies: cough, shortness of breath Similar Symptoms Previously?: Yes Recently seen or treated by another doctor?: No - Diabetes Related Context Context: reports: high blood sugar (209) Review of Systems - Adult - REVIEW OF SYSTEMS - ADULT Constitutional: reports: no symptoms reported. denies: chills Eyes: reports: no symptoms reported Ears, Nose, Mouth & Throat: reports: no symptoms reported Cardiovascular: reports: no symptoms reported. denies: chest pain Respiratory: reports: no symptoms reported. denies: cough Gastrointestinal: reports: nausea, vomiting. denies: abdominal pain, diarrhea Genitourinary: reports: no symptoms reported Musculoskeletal: reports: no symptoms reported. denies: bone pain, back pain Integumentary: reports: no symptoms reported Neurological: reports: no symptoms reported. denies: dizziness/vertigo, headache/migraines Psychiatric: reports: no symptoms reported Endocrine: reports: no symptoms reported Hematologic/Lymphatic: reports: no symptoms reported Allergic/Immunologic: reports: no symptoms reported All Other Systems: Reviewed and Negative Past History - Adult - PAST MEDICAL HISTORY-ADULT Review of Records: reports: Old Records Reviewed, Nursing Assessment Review, Medications Reviewed, Social history reviewed & non-contributory. Major Childhood Illnesses: reports: denies history Cardiovascular: reports: HTN, hyperlipidemia Respiratory: reports: asthma, COPD Gastrointestinal: reports: denies history Obstetrical/Gynecological: reports: other (cervical cancer) Genitourinary: reports: kidney disease Musculoskeletal: reports: denies history Neurological: reports: CVA, Seizures/Epilepsy Psychiatric: reports: anxiety, depression Endocrine/Immune: reports: Diabetes Other Conditions: reports: denies history - PRIOR SURGERIES/PROCEDURES Surgical/Procedure History: reports: cholecystectomy, hysterectomy, breast (augmentation), other (cardiectomy) - IMMUNIZATION STATUS Childhood Immunizations: UTD, See Nurse Assessment Flu Vaccine: See Nurse Assessment - FAMILY HISTORY Family History: HTN - SOCIAL HISTORY Smoking: cigarettes Provider spent 3-5 mins advising pt. on dangers of tobacco.: Discussed manners to quit use, and f/u contacts for add'l counseling. Substance Use: none/never Alcohol Use Frequency: never Living Situation: family Physical Exam-General - PHYSICAL EXAM-ADULT Initial Vital Signs Reviewed: Yes - CONSTITUTIONAL General Appearance: alert, no apparent distress, thin, lethargic, slow to respond - EYES Eyes: PERRL/EOMI - HEAD, EARS, NOSE, MOUTH & THROAT HENMT: normocephalic/atraumatic, moist mucous membranes, normal ENT inspection, TMs normal, pharynx normal - NECK Neck: non-tender, full range of motion, supple, normal inspection - RESPIRATORY Respiratory: lungs clear - CARDIOVASCULAR Cardiovascular: regular rate, rhythm - GASTROINTESTINAL (ABDOMEN) Abdominal Exam: normal bowel sounds, non tender, soft - LYMPHATIC Lymphatic: no adenopathy - MUSCULOSKELETAL Back Exam: normal inspection, no CVA tenderness, no vertebral tenderness Extremity: normal range of motion, non-tender, normal gait, normal inspection - SKIN Integumentary: normal color, warm/dry - NEUROLOGIC Neurologic: grossly normal - PSYCHIATRIC Psych/Mental Status: normal mood/affect, normal thought content, normal thought process, oriented x 3, other (Pt is oriented x3, but is slower to respond w/ some slurred speech.) Progress - PLAN OF CARE/RESULTS Progress/Plan/Lab Results: Vital Signs - 8 hr 11/23/18 19:38 Temperature 97.3 F L Pulse Rate 108 H Respiratory Rate 20 Blood Pressure 107/71 O2 Sat by Pulse Oximetry 99 Laboratory Results - last 24 hr 11/23/18 19:43 POC Glucose 209 H D Orders Category Date Time Status FSBS [Finger Stick Blood Sugar (ED)] DIRECTED Care 11/23/18 19:43 Active Nursing- Obtain EKG ONCE Care 11/23/18 19:49 Active ABG [RESP] Routine Lab 11/23/18 19:49 Ordered CBC WITH ELECTRONIC DIFF [HEME] Stat Lab 11/23/18 19:48 Uncollected COMPREHENSIVE METABOLIC PANEL [CHEM] Stat Lab 11/23/18 19:48 Uncollected TROPONIN T Stat Lab 11/23/18 19:49 Uncollected UA [URINALYSIS] [URINALYSIS] Stat Lab 11/23/18 19:48 Uncollected 0.9% Sodium Chloride Inj [Ns] 1,000 ml Med 11/23/18 19:49 Active IV 999 mls/hr Ondansetron [Zofran] Med 11/23/18 19:49 Discontinued 8 mg IV NOW ONE EKG [EKG] Stat Ther 11/23/18 19:49 Ordered Result Diagrams: 11/23/18 20:02 11/23/18 23:45 - EKG 1 Time of EKG reading by physician:: 20:13 EKG Read and Signed by:: Roc Linder EKG Interpretation (*Must complete 3 of following elements*): Abnormal (Normal sinus rhythm, Possible Left atrial enlargememnt, Nonspecific T wave abnormality.Abnormal ECG) Rate: 92 Rhythm: sinus Byers: normal QRS: normal NC Interval: normal Departure - Departure Date of Disposition Decision: 11/24/18 Time of Disposition Decision: 00:44 DIAGNOSIS: DKA (diabetic ketoacidoses) Qualifiers: Diabetes mellitus type: type 1 Diabetes mellitus complication detail: without coma Qualified Code(s): E10.10 - Type 1 diabetes mellitus with ketoacidosis without coma Disposition: ADMITTED INPATIENT 09 Certified Medical Emergency: Emergent Condition: Stable Referrals and Follow-Ups: None,PCP [Primary Care Provider] - - Critical Care Note This patient required my direct & personal management of CC.: No Attestation - Physician/ MYLES Attestation Patient care was provided by Advanced Practice Provider:: No The physician spent face to face time with patient:: Yes Advanced Practice Provider documentation review:: Supervising physician onsite and consulted in the evaluation and care of this patient. The physician did have a face to face encounter with the patient. This chart was documented by the indicated scribe, (Marielena Maxwell Scribe) and accurately reflects the services I performed and decisions made by me, Roc Linder MD, as attested by the provider's signature.
[2018-11-24 01:35] LABS: MAGNESIUM 1.9 mg/dL (1.5-2.7); PHOSPHORUS 3.2 mg/dL (2.7-4.5)
[2018-11-24 01:37] LABS: UR AMPHETAMINES QUAL NONE DETECTED (NONE DETECT); UR BARBITUATES QUAL NONE DETECTED (NONE DETECT); UR BENZODIAZEPIN QUAL NONE DETECTED (NONE DETECT); UR CANNABINOIDS QUAL NONE DETECTED (NONE DETECT); UR COCAINE QUAL NONE DETECTED (NONE DETECT); UR METHADONE QUAL NONE DETECTED (NONE DETECT); UR OPIATES QUAL NONE DETECTED (NONE DETECT); UR OXYCODONE QUAL NONE DETECTED (NONE DETECT); UR PCP QUAL NONE DETECTED (NONE DETECT)
[2018-11-24 02:53] LABS: ACETAMINOPHEN < 1.2 ug/mL (10-30); SALICYLATES < 3.00 mg/dL (3-10)
[2018-11-24] MEDS ORDERED: NS 1,000 ML IV SCH ×4 (03:45→04:41)
[2018-11-24 03:49] LABS: ALLEN TEST YES; BE -18.8 mmoll (-3.0-3.0); BLOOD TYPE ARTERIAL; HCO3-(ACT) 10.3 mmoll (20.0-26.0); METHB 1.2 % (0.0-1.5); O2(CT) 15.8 mL/dL (15.0-23.0); O2HB 96.5 % (95.0-99.0); PCO2(98.6) 23 mmHg (35-45); PO2(98.6) 109 mmHg (60-100); SAMPLE BLOOD; SAO2 98.4 % (95.0-100.0); THB 11.5 g/dL (11.5-17.4)
[2018-11-24 03:51] LABS: MODALITY ROOM AIR; pH(98.6) 7.16 (7.35-7.45)
[2018-11-24] MEDS ORDERED: SODIUM PHOSPHATE 30 MMOL in D5W 250 ML IV PRN (04:30)
[2018-11-24] MEDS ORDERED: SODIUM BICARBONATE 8.4% 100 MEQ in D5W 500 ML IV PRN (04:30)
[2018-11-24] MEDS ORDERED: POTASSIUM CHLORIDE 40 MEQ/SWI 40 MEQ/100 ML IVPB IV PRN (04:30)
[2018-11-24] MEDS ORDERED: POTASSIUM CHLORIDE 20% LIQUID PO PRN (04:30)
[2018-11-24] MEDS ORDERED: D50W SYRINGE IV PRN (04:30)
[2018-11-24] MEDS ORDERED: HUMULIN R IV ONE (04:30)
[2018-11-24] MEDS ORDERED: D5 NS 1,000 ML IV SCH (04:30)
[2018-11-24] MEDS ORDERED: MAGNESIUM SULFATE 2 GM/S.W.I. 2 GM/50 ML IVPB IV PRN (04:30)
[2018-11-24] MEDS ORDERED: ZOFRAN IV PRN (04:44)
[2018-11-24] MEDS ORDERED: TYLENOL PR PRN (04:47)
[2018-11-24 04:55] LABS: BASO# 0.05 X1000 (0.0-0.2); BASO% 0.5 % (0.0-0.8); EOS# 0.21 X1000 (0.0-0.7); HEMATOCRIT 34.3 % (37.0-47.0); HEMOGLOBIN 11.1 g/dL (12.0-16.0); IMM GRAN# 0.02 X1000 (0.0-0.04); IMM GRAN% 0.2 % (0.0-0.5); LYMPH# 3.09 X1000 (1.2-3.4); LYMPH% 29.1 % (20.5-51.1); MCH 29.8 PG (27-31); MCHC 32.4 g/dL (33-37); MONO% 7.5 % (1.7-9.3); MPV 9.7 FL (7.4-10.4); NEUT# 6.45 X1000 (1.4-6.5); NEUT% 60.7 % (42.2-75.2); PLT 179 X1000 (130-400); RBC 3.73 XMIL (4.2-5.4); RDW 12.9 % (11.5-14.5); WBC 10.62 X1000 (4.8-10.8)
[2018-11-24] MEDS ORDERED: SODIUM CHLORIDE 0.9% INJ SCH (05:00)
[2018-11-24] MEDS: HUMULIN R 100 UNIT in NS 99 ML IV SCH ×2 (05:00→16:47)
[2018-11-24 05:12] LABS: CALCIUM 7.9 mg/dL (8.8-10.2); CREATININE 1.3 mg/dL (0.5-0.9); MAGNESIUM 1.7 mg/dL (1.5-2.7); PHOSPHORUS 3.2 mg/dL (2.7-4.5); POTASSIUM 5.1 mmol/L (3.5-5.1)
[2018-11-24 05:17] LABS: HEMOGLOBIN A1C 9.8 % (4.8-6.0)
[2018-11-24] MEDS ORDERED: ATIVAN IV PRN (06:08)
[2018-11-24] MEDS ORDERED: DUONEB (A & A) INH PRN (06:39)
--- NOTE | 2018-11-24 07:20 | Diag Imaging Result Doc PS360 ---
CHEST-PORTABLE - 11/24/2018 INDICATION: AMS,DKA,Leukocytosis COMPARISON: 08/14/2018 FINDINGS: The lungs are normally expanded and clear. Heart size and mediastinal contours are normal. No pneumothorax or pleural effusion. IMPRESSION: Negative exam. Electronically signed by Rolan Villalobos 11/24/2018 7:17 AM
[2018-11-24] MEDS ORDERED: ASPIRIN PR ONE (07:38)
[2018-11-24 07:46] LABS: INR 0.99; PROTIME 13.9 Seconds (11.0-16.0)
[2018-11-24 07:53] LABS: CALCIUM 7.9 mg/dL (8.8-10.2); CREATININE 1.5 mg/dL (0.5-0.9); MAGNESIUM 2.7 mg/dL (1.5-2.7); PHOSPHORUS 4.4 mg/dL (2.7-4.5); POTASSIUM 5.5 mmol/L (3.5-5.1)
--- NOTE | 2018-11-24 08:04 | Diag Imaging Result Doc PS360 ---
CT HEAD W/O CONTRAST - 11/24/2018 INDICATION: AMS,Hx of CVA,Right facial droop COMPARISON: 07/21/2018 FINDINGS: Stable small bilateral old infarcts. Stable mild periventricular white matter chronic microvascular disease. No intracranial mass or hemorrhage. The skull is intact. The sinuses, mastoids, and middle ears are clear. IMPRESSION: No acute process. This exam was performed using automated exposure control, adjustment of mA or kV according to patient size, and/or use of iterative reconstruction technique Electronically signed by Rolan Villalobos 11/24/2018 8:02 AM
[2018-11-24] MEDS: D5 1/2 NS 1,000 ML IV SCH ×3 (08:33→19:21)
[2018-11-24 08:42] LABS: I-STAT BE -24 mmoll (-2-3); I-STAT GLUCOSE 437 mg/dL (70-105); I-STAT HEMOGLOBIN 10.9 g/dL (11.5-17.5); I-STAT K 3.9 mmoll (3.5-4.9); I-STAT TCO2 6 mmoll (23-27); I-STAT pH 7.074 (7.350-7.450)
[2018-11-24 08:47] LABS: BLOOD TYPE ARTERIAL; SAMPLE BLOOD
[2018-11-24] MEDS: PROTONIX IV SCH (08:47)
[2018-11-24] MEDS: HEPARIN SUBQ SCH ×2 (08:47→20:57)
[2018-11-24 08:59] LABS: ALLEN TEST YES; BE -23.3 mmoll (-3.0-3.0); HCO3-(ACT) 6.8 mmoll (20.0-26.0); METHB 1.2 % (0.0-1.5); O2HB 96.6 % (95.0-99.0); PCO2(98.6) 21 mmHg (35-45); PO2(98.6) 121 mmHg (60-100); SAO2 98.5 % (95.0-100.0); THB 10.9 g/dL (11.5-17.4)
[2018-11-24 09:00] LABS: MODALITY ROOM AIR; pH(98.6) 7.04 (7.35-7.45)
--- NOTE | 2018-11-24 09:01 | HISTORY AND PHYSICAL ---
CHIEF COMPLAINT: Nausea and vomiting. HISTORY OF PRESENT ILLNESS: Ms. Crouch is a 53-year-old, female with a past medical history most notable for diabetes mellitus type 1 with a history of being poorly controlled with previous admissions for diabetic ketoacidosis, hypertension, history of reported previous multiple CVAs, status post left endarterectomy, COPD and seizures. [facility] Reports that she has had elevated blood sugars. Her family reported that she has not eaten since around 4:30 yesterday, and that she has not been able to check her fingerstick blood sugar due to she had been out of her strips for her glucometer. Reported that she had been sick with a cold recently, had not been feeling well. The patient is complaining of nausea and vomiting. Her speech was reported to be slurred, but was answering questions upon arrival. The patient also reportedly took 20 units of her insulin prior to arrival. She was noted to have some mild leukocytosis. The patient at this time is only alert and oriented to person. Her speech at times is slurred and certain words and sentences are not understandable. The patient does appear to be weak, though I did not appreciate any unilateral weakness. Upon further examination, the patient does have some right-sided facial droop noted that her family had not reported being there previously or the patient or the triage nurse who assessed her when she first arrived in the ER, stated this was not previously there as well. She is denying any recent history of fever, body aches or chills. She is denying any cough, shortness of breath or chest pain. She denied any abdominal pain, but is reporting nausea, vomiting. She denies any diarrhea, dysuria. Upon evaluation in the ER, the patient was noted to have some mild leukocytosis, although on initial chemistries the patient did have elevated anion gap at 22. Her serum bicarbonate was just slightly low at 21. Arterial blood gases showed her to have a pH of 7.4. Serum glucose was 160, although she did have a moderate serum acetone level. The patient was given a total of 3 normal saline boluses, as well as Zofran in the ER. We were called for admission for possible early DKA. According to the patient's ER nurse, she was instructed to give the patient a meal and some orange juice. Upon my assessment, I did ask for the patient's fingerstick blood sugar to be repeated, which was now elevated at 337. Given this as well as the patient's assessment and what appears to be some worsening confusion since her arrival, we did repeat her arterial blood gases as well as her chemistries. Now at this time the patient did have a pH of 7.16. She did have a serum bicarbonate of 9, anion gap of 12, and her serum glucose on her chemistries is now 460. We will go ahead and initiate the patient on the DKA protocol. Given her recent history of cold symptoms, we did perform a chest x-ray. There does not appear to be any acute abnormalities, but we are awaiting official Radiology over-read. We have obtained blood cultures as well. Urinalysis did not show any signs of infection. It was negative for leukocytes, white blood cells or bacteria. It was nitrite negative as well. Given the patient's history of previous CVAs, as well as history of left endarterectomy and her confusion which appears to be worsening since her arrival and now new right-sided facial droop, we did perform a CT of the head without contrast which showed no acute intracranial abnormalities. At this time, the patient will be admitted for further treatment and evaluation of DKA and encephalopathy. REVIEW OF SYSTEMS: Fourteen point review of systems was conducted with the patient and all were negative, except for pertinent positives mentioned above HPI. I would like to note that review of systems may be somewhat limited due to the patient's mental status at this time, given that she is confused and that I have no family at this time at bedside to speak with about previous medical history or history of present illness. PAST MEDICAL HISTORY: 1. Diabetes mellitus type 1 with a history of being poorly controlled and previous admissions for DKA. 2. History of reported multiple previous CVAs, status post left endarterectomy. 3. Hypertension. 4. COPD. 5. History of seizures. 6. Depression. 7. Cervical cancer per previous reported history. PAST SURGICAL HISTORY: 1. Left endarterectomy. 2. Cholecystectomy. 3. Hysterectomy. 4. Breast augmentation. SOCIAL HISTORY: The patient is a former smoker, though just recently quit smoking reportedly 3 weeks ago. She denies any alcohol or illicit drug use. FAMILY HISTORY: Positive for hypertension. ALLERGIES: Patient has no known allergies. HOME MEDICATIONS: At this time, we are awaiting the patient's home medication list to be verified. She reports that she uses [facility] [place] [address] [place]. We will try to obtain a list from them today, especially regarding her current medication and dosage for her seizure disorder. DIAGNOSTIC DATA: White blood cell count is 11,380, hemoglobin 13.3, hematocrit 39.9 and platelet count is 160. Chemistries drawn at 0345 hours now show a sodium of 138, potassium of 5.1, chloride of 101, serum bicarbonate of 9 with an anion gap of 28. BUN of 17, creatinine 1.3 with a GFR 43, glucose is 460. Hemoglobin A1c was 9.8 with an average glucose level of 235. Phosphorus was 3.2, magnesium 1.7 with a plasma lactate of 0.7. The patient's previous chemistries at 2001 hours on November 23 did show liver function tests that were within normal limits, except for alkaline phosphatase is slightly elevated at 126 and troponin was less then 0.01. Salicylate and Tylenol levels were within normal limits. She did have a moderate serum acetone level. Serum alcohol was zero. Urine drug screen was negative. Urinalysis was obtained via clean-catch and did show positive for protein, glucose, ketones, blood and moderate bilirubin that was negative for nitrites, leukocytes, white blood cells or bacteria. Arterial blood gases upon repeat reading obtained at 0339 hours on November 24 did show a pH of 7.16, pCO2 of 23, a PO2 of 109, HCO3 was 10.3 with a base excess of 18.8 and O2 saturation of 98.4. These were obtained on room air. EKG showed normal sinus rhythm with possible left atrial enlargement at a rate of 92 with QTC of 425. Portable chest x-ray does not show any acute abnormalities, but we are awaiting official Radiology over-read. CT of the head without contrast shows no acute intracranial abnormalities. There were old infarcts noted. Otherwise this was an age-appropriate exam. This is per overnight radiology report. PHYSICAL EXAMINATION: VITAL SIGNS: Temperature 97.3 degrees, heart rate is 100, respirations 18, blood pressure 134/63 with a MAP of 94, oxygen saturation is 100 percent on room air. GENERAL: Ms. Crouch is a 53-year-old, ill-appearing female. She was resting on the ER stretcher. She did not appear to be in any acute distress, though she was altered and only oriented to person. She could not state where she was and thought the month was May. At times the patient's speech is slurred, and some words and sentences were not understandable. She is able to follow commands. HEENT: Head is atraumatic, normocephalic. Pupils are equal, round, reactive to light, were 3 mm bilaterally and brisk. Oral mucosa is dry. Oropharynx is clear. NECK: Supple. Trachea midline. CARDIOVASCULAR: Patient has S1, S2 present. No murmurs, gallops, rubs appreciated with a tachycardic rate that is regular. PULMONARY: Patient has symmetrical chest expansion bilaterally. Lung sounds are clear to auscultation in bilateral full corrigan. ABDOMEN: Soft. The patient did not report any tenderness upon palpation. She did not show any guarding or localization to pain either. Bowel sounds are present in all 4 quadrants, were slightly hypoactive. EXTREMITIES: No cyanosis, clubbing, or edema noted. Pulse, motor, and sensory are intact at this time. Radial and pedal pulses were 2+ bilaterally. INTEGUMENTARY: The patient's skin is pink, warm and dry, although she does have decreased skin turgor noted. NEUROLOGICAL: Patient is alert and oriented to person only. She could not state where she was, and thought the month was May. At times her speech was slurred and some sentences and words were not understandable. The patient does appear to have generalized weakness, though I did not notice any unilateral weakness, at this time. Hand grasps were equal, but weak. Her hand grasp and muscle strength were weak, but equal. She is not reporting any numbness or tingling, though she is reporting some nausea. The patient does have a right-sided facial droop noted. ASSESSMENT AND PLAN: 1. Diabetic ketoacidosis. We have placed the patient on diabetic ketoacidosis protocol. She will receive a total of 4 liters normal saline bolus. We will continue normal saline at 120 mL/hour. We will closely monitor her arterial blood gases and chemistries, including magnesium and phosphorus every 4 hours per protocol. She will remain on nothing by mouth at this time, given that she is still experiencing quite a bit of nausea, and did have episode of vomiting in the emergency room. She will be placed in [facility] for close monitoring. 2. Acute kidney injury. This is likely secondary to her diabetic ketoacidosis and volume depletion. We have ordered the patient to be fluid resuscitated and have continuous normal saline infusion orders. We will continue to follow her closely. We will avoid nephrotoxic medications and renally-dosed medications as necessary. 3. Encephalopathy. This could be multifactorial. This may be related to the patient's diabetic ketoacidosis, although she does have a history of having multiple cerebrovascular accidents in the past. Her initial computed tomography of the head without contrast performed in the emergency room was negative for any acute intracranial abnormalities, although given her history we will go ahead and continue with carotid ultrasound, echocardiogram, as well as magnetic resonance imaging of the brain without contrast due to her renal function at this time. We will await those results and continue to follow. We will continue with every 4 hour neuro checks. She will be on continuous cardiac telemetry and vital signs every hour. 4. History of cerebrovascular accident status post left endarterectomy. We will continue with treatment as mentioned above for #3. We will await results of her echocardiogram, carotid ultrasound and magnetic resonance imaging. At this time, we are unsure if the patient has been on any regimen for her history of cerebrovascular accidents. We are unsure if she is taking medications for hypertension or hyperlipidemia, or if she is taking daily aspirin. We are going to try to obtain her home medication list. 5. History of seizures. We have placed the patient on seizure precautions. We are trying to obtain her regularly prescribed seizure medications so this can be continued. We have ordered Ativan as needed. 6. History of chronic obstructive pulmonary disease. We will place orders for DuoNeb treatments as needed. 7. History of hypertension. We are unsure what the patient's regularly prescribed hypertensive medication is, so at this time her blood pressure is within normal limits. We will continue to follow and implement antihypertensives if necessary. 8. Deep vein thrombosis prophylaxis will be provided with sequential compression devices. 9. Gastrointestinal prophylaxis will be provided with Protonix 40 mg intravenous every 24 hours. The patient has been placed in [facility] with telemetry. She will have vital signs every hour. She will be on continuous cardiac telemetry and pulse oximetry. We will continue to monitor her condition closely. Further orders and recommendations pending hospital course, diagnostic studies and physician evaluations. Dictated by LISHA Rome for Ismael Villanueva MD cc: Ismael Villanueva MD
[2018-11-24] MEDS ORDERED: SODIUM BICARBONATE 8.4% IV PUSH ONE (09:04)
[2018-11-24 09:09] LABS: URINE SOURCE CATH
[2018-11-24] MEDS: 1/2 NS 1,000 ML IV SCH ×3 (09:12→20:57)
[2018-11-24 09:13] LABS: BILIRUBIN URINE NEGATIVE (NEGATIVE); BLOOD URINE TRACE (NEGATIVE); COLOR STRAW; GLUCOSE URINE >1000 mg/dL (NEGATIVE); KETONE URINE >150 mg/dL (NEGATIVE); LEUKOCYTES URINE NEGATIVE (NEGATIVE); NITRITE URINE NEGATIVE (NEGATIVE); PROTEIN URINE TRACE mg/dL (NEGATIVE); SP GRAVITY URINE 1.009; TURBIDITY URINE CLEAR (CLEAR); UROBILINOGEN URINE NORMAL (NORMAL)
[2018-11-24 09:14] LABS: UR EPITHELIAL CELLS <10 /HPF (<10); URINE BACTERIA NEGATIVE /HPF; URINE RBC <10 /HPF (<10); URINE WBC <10 /HPF (<10)
--- NOTE | 2018-11-24 09:18 | PROGRESS NOTE ---
DATE: 11/24/2018 SUBJECTIVE: This patient is lying in bed, she is not agitated, she is oriented x1, to person, but she is able to say her date of and she knows she is in a hospital but she does not know which one, she is not oriented to time, she is following commands, she has generalized weakness, but it looks like the right arm is weaker compared with the left arm and she has some left facial weakness as well which I am not sure if this is new or old. As per the patient, she has been having multiple strokes before. Last MRI done was in September 2016 and showed a lacunar infarction in the right Centrum semiovale. In 2015, another MRI done showed a subacute left parietal infarct with chronic microvascular ischemic changes, and at the beginning of the same year, she had a small acute infarction at the left central sulcus, multifocal bilateral old infarctions and chronic microvascular disease of the center white matter, like I said, I am not sure if this mild weakness at the level of the right upper extremity is because of her current condition or previous stroke, I am not quite sure if this right-sided face weakness is new or old, I do not have any family members at the bedside. As per the ER note, when she came in, her speech was slurred. She is in DKA. She has been placed on the diabetic ketoacidosis protocol. It looks like she has chronic kidney disease and she is around probably her baseline, as per the patient, she takes her medications at home but I am not quite sure about it. She has a history of seizure disorder apparently. OBJECTIVE: Vital Signs: Temperature 97.8 degrees, pulse 111, respiratory rate 20, blood pressure 142/73, oxygen saturation 100% on room air. HEENT: Head normocephalic. No trauma. PERRLA. Left-sided face weakness. Sensation is intact. Neck: Supple. No JVD. Central trachea. Chest: Clear to auscultation. No wheezing. No rales. Abdomen: Soft, nontender, nondistended. No hepatosplenomegaly. Extremities: No edema, no clubbing, no cyanosis. Neurological: This patient is confused, she is oriented just to person, date of , she knows she is in the hospital. She does not know which one. She is oriented to time. She is following commands and moving all 4 extremities but I believe the right upper extremity is weaker compared with the left upper extremity, but since this patient has generalized weakness and confusion, I am not quite sure about it. LABORATORY DATA: WBC 10.6, hemoglobin 11.1, hematocrit 34.3, platelets 179,000. pH 7.16, pCO2 23, PO2 19, bicarb 10.3. Sodium 138, potassium 5.5, chloride 102, bicarbonate 6, BUN 18, creatinine 1.5, glucose 590, calcium 7.9. ASSESSMENT AND PLAN: 1. Diabetes ketoacidosis. She has been placed on a diabetic ketoacidosis protocol, we will continue with IV fluids, we will continue replacing her electrolytes as needed. She has been having this problem before and actually she was admitted the last time at the beginning of this year on 08/15/2018 due to diabetic ketoacidosis as well. We will continue to monitor this patient closely. 2. Hypertension. Blood pressure is controlled. We will continue with same management. 3. Past medical history of apparently medical history of seizure disorder, it looks like she has been on Keppra before. We will call the family member or the pharmacy to reconcile the medications and put her back on her home medications. For now, we will monitor. 4. History of chronic obstructive pulmonary disease, aware. Not in exacerbation at this moment. 5. Uncontrolled type 2 diabetes, as per #1. 6. Multiple history of strokes. Like I mentioned before, we have evidence of at least 3 different episodes of a stroke in 2016 and 2017, as per the patient she has been taking her medications as prescribed but she does not remember the name of them, with possible new stroke at this moment, but I am not quite sure about it. 7. Gastrointestinal prophylaxis with proton pump inhibitor. 8. History of depression. Aware. 9. Chronic kidney disease. We will continue to monitor. Continue with IV fluids. Possible medical noncompliance. 10. Deep venous thrombosis prophylaxis with heparin twice a day due to her kidney dysfunction. CRITICAL CARE TIME: 45 minutes. cc: Kye Swanson MD
[2018-11-24] MEDS ORDERED: NS 0 ML ONE (11:02)
[2018-11-24 11:37] LABS: ALLEN TEST NO; BE -13.2 mmoll (-3.0-3.0); BLOOD TYPE ARTERIAL; HCO3-(ACT) 14.6 mmoll (20.0-26.0); METHB 0.7 % (0.0-1.5); O2HB 96.3 % (95.0-99.0); PCO2(98.6) 29 mmHg (35-45); PO2(98.6) 81 mmHg (60-100); SAMPLE BLOOD; SAO2 97.9 % (95.0-100.0); pH(98.6) 7.25 (7.35-7.45)
[2018-11-24 11:38] LABS: MODALITY ROOM AIR
[2018-11-24 11:52] LABS: CALCIUM 7.9 mg/dL (8.8-10.2); CREATININE 1.3 mg/dL (0.5-0.9); MAGNESIUM 2.1 mg/dL (1.5-2.7); PHOSPHORUS 1.3 mg/dL (2.7-4.5); POTASSIUM 3.5 mmol/L (3.5-5.1)
[2018-11-24] MEDS: POTASSIUM CHLORIDE 10% LIQUID PO PRN ×2 (12:05→16:56)
[2018-11-24 15:39] LABS: ALLEN TEST NO; BE -5.7 mmoll (-3.0-3.0); BLOOD TYPE ARTERIAL; HCO3-(ACT) 20.5 mmoll (20.0-26.0); MODALITY ROOM AIR; O2(CT) 14.1 mL/dL (15.0-23.0); O2HB 96.5 % (95.0-99.0); PCO2(98.6) 35 mmHg (35-45); PO2(98.6) 90 mmHg (60-100); SAMPLE BLOOD; SAO2 98.2 % (95.0-100.0); THB 10.3 g/dL (11.5-17.4); pH(98.6) 7.35 (7.35-7.45)
--- NOTE | 2018-11-24 16:31 | ECHO REPORT ---
ORDER DATE: 11/24/2018 INDICATION: CVA, right facial droop. FINDINGS: 1. The right atrium appears normal in size at 3.5 cm. 2. Mild tricuspid regurgitation. RV systolic pressure of 30. 3. Normal RV size and systolic function. 4. No significant pulmonic insufficiency. 5. Normal left atrial size with a volume index of 20. 6. No mitral valve prolapse. Mild mitral regurgitation. No evidence of mitral stenosis. 7. Normal LV size, end-diastolic dimension of 4.9. Normal wall thicknesses with a posterior and interventricular septal wall thickness of 0.9 cm each. Normal LV systolic function. The estimated EF is 65% with normal wall motion. 8. Aortic valve opens well. No evidence of stenosis or insufficiency. 9. Aorta appears normal in visualized segments. 10. No pericardial effusion is identified. 11. The ejection fraction on this echocardiogram appears consistent with that from the echocardiogram in October 2015. cc: Ephraim Duffy MD
[2018-11-24 16:43] LABS: CALCIUM 7.7 mg/dL (8.8-10.2); CREATININE 1.2 mg/dL (0.5-0.9); PHOSPHORUS 1.4 mg/dL (2.7-4.5); POTASSIUM 4.3 mmol/L (3.5-5.1)
[2018-11-24] MEDS ORDERED: INSULIN PEN NEEDLES ONE (18:17)
[2018-11-24] MEDS ORDERED: BASAGLAR SUBQ ONE (19:00)
[2018-11-24 20:03] LABS: AGAP 12; BUN 11 mg/dL (8-22); CALCIUM 7.3 mg/dL (8.8-10.2); CHLORIDE 109 mmol/L (98-107); COSMO 277; CREATININE 1.2 mg/dL (0.5-0.9); GLUCOSE 158 mg/dL (70-104); MAGNESIUM 1.9 mg/dL (1.5-2.7); PHOSPHORUS 1.4 mg/dL (2.7-4.5); POTASSIUM 4.7 mmol/L (3.5-5.1); SODIUM 137 mmol/L (136-145); TCO2 16 mmol/L (25-35)
[2018-11-24] MEDS: HUMULIN R SUBQ SCH (20:57)
[2018-11-25 00:55] LABS: CALCIUM 7.6 mg/dL (8.8-10.2); PHOSPHORUS 1.2 mg/dL (2.7-4.5); POTASSIUM 4.2 mmol/L (3.5-5.1)
[2018-11-25] MEDS: D5 1/2 NS 1,000 ML IV SCH ×2 (03:57→18:12)
[2018-11-25] MEDS: 1/2 NS 1,000 ML IV SCH ×4 (03:57→20:26)
[2018-11-25 04:56] LABS: AGAP 13; BUN 9 mg/dL (8-22); CALCIUM 7.2 mg/dL (8.8-10.2); CHLORIDE 107 mmol/L (98-107); COSMO 279; CREATININE 0.9 mg/dL (0.5-0.9); ESTIMATED GFR > 60; GLUCOSE 183 mg/dL (70-104); PHOSPHORUS 2.1 mg/dL (2.7-4.5); POTASSIUM 5.8 mmol/L (3.5-5.1); SODIUM 138 mmol/L (136-145); TCO2 18 mmol/L (25-35)
[2018-11-25] MEDS: HUMULIN R SUBQ SCH ×3 (05:19→12:31)
[2018-11-25 06:00] LABS: BASO# 0.04 X1000 (0.0-0.2); BASO% 0.5 % (0.0-0.8); EOS# 0.32 X1000 (0.0-0.7); EOS% 4.3 % (0.0-10.0); HEMATOCRIT 33.5 % (37.0-47.0); LYMPH# 2.72 X1000 (1.2-3.4); LYMPH% 36.8 % (20.5-51.1); MCH 29.9 PG (27-31); MCHC 32.8 g/dL (33-37); MONO# 0.36 X1000 (0.11-0.59); MONO% 4.9 % (1.7-9.3); MPV 9.3 FL (7.4-10.4); NEUT# 3.96 X1000 (1.4-6.5); NEUT% 53.5 % (42.2-75.2); PLT 154 X1000 (130-400); RBC 3.68 XMIL (4.2-5.4); RDW 13.1 % (11.5-14.5)
[2018-11-25] MEDS ORDERED: ALBUTEROL 0.5% INH CONC FOR HYPERKALEMIA INH ONE (07:32)
[2018-11-25] MEDS ORDERED: 1/2 NS 1,000 ML IV SCH (07:54)
[2018-11-25] MEDS: PROTONIX IV SCH (08:26)
[2018-11-25] MEDS: ASPIRIN PO SCH (08:26)
[2018-11-25] MEDS: HEPARIN SUBQ SCH ×2 (08:26→20:51)
--- NOTE | 2018-11-25 08:28 | PROGRESS NOTE ---
DATE: 11/25/2018 SUBJECTIVE: This patient is more alert, more awake, she is oriented x3 but her answers are slow. Apparently this is her baseline. She does have some right-sided weakness and facial weakness, but as per the patient, this is chronic. She has had multiple strokes before, documented here with MRI since 2016. She is no longer on the diabetic ketoacidosis protocol. Her anion gap is closed. Blood sugar is elevated at 194, hemoglobin A1c is 9.8. OBJECTIVE: Vital Signs: Temperature 98.2 degrees, pulse 67, respiratory rate 12, blood pressure 107/58, oxygen saturation 100% on room air. HEENT: Head normocephalic. No trauma. PERRLA. Right facial weakness. Neck: Supple. No JVD. Central trachea. Chest: Clear to auscultation. No wheezing. No rales. Abdomen: Soft, nontender, nondistended. No hepatosplenomegaly. Extremities: No edema, no clubbing, no cyanosis. Neurological: This patient is sleepy, but arousable. She is oriented x3. She is following commands. She does have 3/5 right-sided weakness, including her face and as per the patient is chronic. She is answering to my questions, but slowly. LABORATORY: WBC 7.4, hemoglobin 11, hematocrit 33.5, platelets 154,000. Sodium 138, potassium 5.8, and it is possible to be hemolyzed. Chloride 107, bicarbonate 18, BUN 9, creatinine 0.9, glucose 183, calcium 7.2, magnesium 2. ASSESSMENT AND PLAN: 1. Diabetic ketoacidosis. Yesterday we stopped the DKA protocol because the anion gap closed. I put her on Lantus, but I increased the dose a little bit. I will continue with sliding scale insulin and pattern blood sugar as well. I will continue with gentle hydration. The kidney injury resolved. She seems to be hyperkalemic, but I believe this is due to hemolysis. I will remove the George catheter. I will continue to monitor this patient in the [facility] at this moment. 2. Hypertension, controlled. 3. Past medical history of seizure disorder, continue with home medication. 4. History of chronic obstructive pulmonary disease, aware. Not in exacerbation at this moment. 5. Uncontrolled type 2 diabetes, as per #1. 6. Multiple history of strokes documented in this hospital at least 3. Two episodes in 2016, and 1 episode in 2017. As per the patient, she has been taking her medications as prescribed. 7. Gastrointestinal prophylaxis with proton pump inhibitors. 8. History of depression, aware. 9. Possible acute on chronic kidney disease. This is better. 10. Medical noncompliance, I do believe this is the cause of her diabetic ketoacidosis. When I asked her what kind of medications she is on, she did not know the frequency or the amount. 11. Deep vein thrombosis prophylaxis with heparin. I have ordered Physical Therapy today. cc: Kye Swanson MD
[2018-11-25] MEDS ORDERED: DILANTIN PO SCH (09:00)
[2018-11-25] MEDS ORDERED: ASPIRIN PR SCH (09:00)
[2018-11-25] MEDS ORDERED: HUMULIN R IV ONE (11:45)
[2018-11-25] MEDS ORDERED: SODIUM BICARBONATE 8.4% 100 MEQ in D5W 500 ML IV PRN (11:45)
[2018-11-25] MEDS ORDERED: MAGNESIUM SULFATE 2 GM/S.W.I. 2 GM/50 ML IVPB IV PRN (11:45)
[2018-11-25] MEDS ORDERED: POTASSIUM CHLORIDE 20 MEQ/SWI 20 MEQ/100 ML IVPB IV PRN (11:45)
[2018-11-25] MEDS ORDERED: HUMULIN R 100 UNIT in NS 99 ML IV SCH (11:45)
[2018-11-25] MEDS ORDERED: POTASSIUM CHLORIDE 40 MEQ/SWI 40 MEQ/100 ML IVPB IV PRN (11:45)
[2018-11-25] MEDS ORDERED: POTASSIUM CHLORIDE 20% LIQUID PO PRN (11:45)
[2018-11-25] MEDS ORDERED: SODIUM PHOSPHATE 30 MMOL in D5W 250 ML IV PRN (11:45)
[2018-11-25] MEDS ORDERED: SODIUM BICARBONATE 8.4% 50 MEQ in D5W 250 ML IV PRN (11:45)
[2018-11-25] MEDS ORDERED: D50W SYRINGE IV PRN (11:45)
[2018-11-25 12:12] LABS: CREATININE 1.2 mg/dL (0.5-0.9); MAGNESIUM 1.9 mg/dL (1.5-2.7); POTASSIUM 4.3 mmol/L (3.5-5.1)
[2018-11-25 12:22] LABS: ALLEN TEST YES; BLOOD TYPE ARTERIAL; METHB 0.5 % (0.0-1.5); O2(CT) 13.8 mL/dL (15.0-23.0); PCO2(98.6) 28 mmHg (35-45); PO2(98.6) 99 mmHg (60-100); SAMPLE BLOOD; SAO2 98.6 % (95.0-100.0); pH(98.6) 7.24 (7.35-7.45)
[2018-11-25 12:32] LABS: PHOSPHORUS 0.9 mg/dL (2.7-4.5)
[2018-11-25] MEDS ORDERED: MISC. PHARMACY COMMUNICATION SCH ×2 (12:45→19:15)
[2018-11-25 13:06] LABS: CALCIUM 7.3 mg/dL (8.8-10.2); CREATININE 1.2 mg/dL (0.5-0.9); MAGNESIUM 1.8 mg/dL (1.5-2.7); PHOSPHORUS 2.5 mg/dL (2.7-4.5); POTASSIUM 4.2 mmol/L (3.5-5.1)
[2018-11-25] MEDS: POTASSIUM CHLORIDE 10% LIQUID PO PRN ×2 (14:51→20:51)
[2018-11-25] MEDS: DILANTIN PO SCH ×2 (14:51→20:52)
[2018-11-25] MEDS ORDERED: D5 NS 1,000 ML IV SCH (15:00)
[2018-11-25 16:15] LABS: ALLEN TEST NO; BE -9.6 mmoll (-3.0-3.0); BLOOD TYPE ARTERIAL; HCO3-(ACT) 17.4 mmoll (20.0-26.0); METHB 0.7 % (0.0-1.5); O2(CT) 12.3 mL/dL (15.0-23.0); O2HB 95.8 % (95.0-99.0); PCO2(98.6) 29 mmHg (35-45); PO2(98.6) 71 mmHg (60-100); SAMPLE BLOOD; SAO2 98.3 % (95.0-100.0); THB 9.1 g/dL (11.5-17.4); pH(98.6) 7.33 (7.35-7.45)
[2018-11-25 16:17] LABS: MODALITY ROOM AIR
[2018-11-25 16:57] LABS: CALCIUM 7.8 mg/dL (8.8-10.2); CREATININE 1.2 mg/dL (0.5-0.9); MAGNESIUM 1.7 mg/dL (1.5-2.7); PHOSPHORUS 2.5 mg/dL (2.7-4.5); POTASSIUM 4.1 mmol/L (3.5-5.1)
[2018-11-25 20:09] LABS: ALLEN TEST YES; BE -3.4 mmoll (-3.0-3.0); BLOOD TYPE ARTERIAL; HCO3-(ACT) 22.3 mmoll (20.0-26.0); METHB 0.8 % (0.0-1.5); O2HB 96.6 % (95.0-99.0); PCO2(98.6) 36 mmHg (35-45); PO2(98.6) 80 mmHg (60-100); SAMPLE BLOOD; SAO2 97.9 % (95.0-100.0); THB 9.5 g/dL (11.5-17.4); pH(98.6) 7.38 (7.35-7.45)
[2018-11-25 20:10] LABS: MODALITY ROOM AIR
[2018-11-25 20:41] LABS: CALCIUM 7.5 mg/dL (8.8-10.2); CREATININE 1.4 mg/dL (0.5-0.9); MAGNESIUM 1.9 mg/dL (1.5-2.7); PHOSPHORUS 2.6 mg/dL (2.7-4.5); POTASSIUM 3.7 mmol/L (3.5-5.1)
[2018-11-25] MEDS ORDERED: BASAGLAR SUBQ SCH (21:00)
[2018-11-26 00:30] LABS: ALLEN TEST YES; BE -0.9 mmoll (-3.0-3.0); BLOOD TYPE ARTERIAL; HCO3-(ACT) 24.2 mmoll (20.0-26.0); O2(CT) 12.8 mL/dL (15.0-23.0); O2HB 96.2 % (95.0-99.0); PCO2(98.6) 37 mmHg (35-45); PO2(98.6) 83 mmHg (60-100); SAMPLE BLOOD; SAO2 97.8 % (95.0-100.0); THB 9.4 g/dL (11.5-17.4); pH(98.6) 7.41 (7.35-7.45)
[2018-11-26 00:31] LABS: MODALITY ROOM AIR
[2018-11-26 00:46] LABS: CALCIUM 7.6 mg/dL (8.8-10.2); CREATININE 1.1 mg/dL (0.5-0.9); MAGNESIUM 2.4 mg/dL (1.5-2.7)
[2018-11-26] MEDS: D5 1/2 NS 1,000 ML IV SCH (02:12)
[2018-11-26 05:47] LABS: CALCIUM 7.7 mg/dL (8.8-10.2); MAGNESIUM 2.3 mg/dL (1.5-2.7); POTASSIUM 3.8 mmol/L (3.5-5.1)
[2018-11-26] MEDS: 1/2 NS 1,000 ML IV SCH ×2 (06:07→09:02)
[2018-11-26] MEDS: POTASSIUM CHLORIDE 10% LIQUID PO PRN (06:39)
--- NOTE | 2018-11-26 08:12 | EKG Report ---
Test Performed on : 11/23/2018 8:13:44 PM Test Reason : ams Blood Pressure : / mmHG Vent. Rate : 092 BPM Atrial Rate : 092 BPM P-R Int : 140 ms QRS Dur : 068 ms QT Int : 344 ms P-R-T Axes : 068 067 076 degrees QTc Int : 425 ms Normal sinus rhythm. Possible Left atrial enlargement Nonspecific T wave abnormality Abnormal ECG When compared with ECG of 21-JUL-2018 21:06, Nonspecific T wave abnormality now evident in Inferior leads Nonspecific T wave abnormality now evident in Lateral leads Unconfirmed Result
--- NOTE | 2018-11-26 08:40 | PROGRESS NOTE ---
DATE: 11/26/2018 SUBJECTIVE: This patient feels much better today. She is alert and she is oriented x3. She is answering my questions. She does have some right-sided weakness and facial weakness, but as per the patient this is chronic. She has a history of multiple strokes. OBJECTIVE: Vital Signs: Temperature 98.1 degrees, pulse 65, respiratory rate 14, blood pressure 114/60, oxygen saturation 100% on room air. HEENT: Head normocephalic, no trauma. PERRLA. Right facial weakness. Neck: Supple. No JVD. Central trachea. Chest: Clear to auscultation. No wheezing. No rales. Abdomen: Soft, nontender, nondistended. No hepatosplenomegaly. Extremities: No edema, no clubbing, no cyanosis. Neurological: The patient is awake, alert, and oriented x3. She is following commands. She does have 3-4 right-sided weakness, but this is chronic as per the patient. She is answering my questions better today. LABORATORY: PH 7.4, pCO2 37, PO2 83, bicarbonate 24.2. The ABGs were done at 12:20 a.m. Then at 5:00 a.m. sodium 143, potassium 3.8, chloride 112, bicarbonate 22, BUN 7, creatinine 1, anion gap 9, glucose 147, calcium 7.7, phosphorus 2.8, magnesium 2.3. ASSESSMENT AND PLAN: 1. Diabetic ketoacidosis, this patient upon admission was placed on the DKA protocol and anion gap closed, then during the day, yesterday this patient started having again elevated blood sugars and DKA symptoms, so we put her back on the diabetic ketoacidosis protocol, which we will stop today since the blood sugar, anion gap and everything looks fine. She is tolerating p.o. as well. We will restart her home medications, including Lantus and NovoLog, but I will increase a little bit her Lantus from 10 to 15. I will continue with her NovoLog, sliding scale insulin and pattern of blood sugar. 2. Hypertension, controlled. 3. Past medical history of seizure disorder. Continue home medication. 4. History of chronic obstructive pulmonary disease, aware, not in exacerbation at this moment. 5. Uncontrolled type 2 diabetes, as per #1. 6. Multiple history of strokes documented in the hospital, at least 3. Two episodes on in 2015 and 1 episode in 2017 with mild right-sided weakness. 7. Gastrointestinal prophylaxis with proton pump inhibitors. 8. History of depression. Aware. 9. Possible acute on chronic kidney disease, this is better. Probably this is her baseline. 10. Medical noncompliance. As per the patient, she has been taking her treatment at home, and for her, her normal blood sugar is around 200, but she always ends up with DKA if she is having an acute condition like flu-like symptoms. 11. Deep vein thrombosis prophylaxis with heparin, physical therapy. cc: Kye Swanson MD
[2018-11-26] MEDS ORDERED: INSULIN ASPART SUBQ SCH (09:00)
[2018-11-26] MEDS: HUMALOG SUBQ SCH ×3 (09:02→15:38)
[2018-11-26] MEDS: HEPARIN SUBQ SCH ×2 (09:03→21:55)
[2018-11-26] MEDS: ASPIRIN PO SCH (09:03)
[2018-11-26] MEDS: PROTONIX IV SCH (09:03)
[2018-11-26] MEDS: DILANTIN PO SCH ×3 (09:04→21:55)
[2018-11-26] MEDS: BASAGLAR SUBQ SCH (09:04)
[2018-11-26] MEDS: HUMULIN R SUBQ SCH ×2 (10:04→15:39)
--- NOTE | 2018-11-26 11:57 | Diag Imaging Result Doc PS360 ---
EXAM: MRI BRAIN W/O CONTRAST 11/24/2018 HISTORY: AMS,Hx of CVA,Right Facial Droop TECHNIQUE: T1 sagittal, axial, T2, FLAIR, DWI axial and coronal gradient echo. COMMENT: The current examination is compared with the previous study of 09/30/2016. There is a small lacunar lesion on the right side in the thalamus which was not present at the time the previous study. There are multiple additional foci of increased T2-weighted signal intensity present in the juarez radiata region bilaterally some of which were present at the time the previous study. There are more numerous foci however. There is also cortical and subcortical hyperintensity present in both convexities which were also present at the time the previous study. There is a 7 mm subcortical focus of decreased diffusion which was not present previously in the posterior left frontal lobe. The abnormality which was previously seen posteriorly in the deep parietal white matter is no longer visualized. There is no evidence of bleed or mass effect. IMPRESSION: Chronic ischemic changes with superimposed acute lacunar infarction in the posterior left parietal subcortical white matter. Electronically signed by Nilson Chadwick 11/26/2018 11:55 AM
[2018-11-26] MEDS ORDERED: ROCEPHIN 1 GM in NS 50 ML IV SCH (13:15)
--- NOTE | 2018-11-26 20:57 | Carotid Study ---
DATE: 11/24/2018 PROCEDURE: Bilateral carotid duplex exam. REQUESTING PHYSICIAN: Dr. Villanueva. INTERPRETING PHYSICIAN: Dr. Beto Cr. TECH: StartSpanish. INDICATIONS: Altered mental status with a history of left endarterectomy and right facial droop. EXAM FOR COMPARISON: 09/29/2016. PATENT CHEMIST NOTE: There is a right external jugular vein line obscuring images of the right bifurcation internal carotid artery. OBSERVED DATA RIGHT LEFT Brachial Blood Pressure Carotid Pulse Bruits: Carotid/Sub DIAGRAM OF ULTRASOUND IMAGING R L RIGHT INT EXT INT EXT LEFT Man (cm/s) Man (cm/s) Subclavian 193/0 Subclavian 250/0 CCA Proximal 120/8 CCA Proximal 106/13 CCA Distal 111/14 CCA Distal 90/9 Bulb 86/11 Bulb 94/9 ICA Proximal Not visualized ICA Proximal 88/10 ICA Mid Not imaged ICA Mid 71/15 ICA Distal Not imaged ICA Distal 70/22 ECA Not imaged ECA 174/6 Vertebral Not imaged Vertebral 47/6 A ICA/CCA Ratio Not obtained ICA/CCA Ratio 0.83 % Stenosis Not obtainable % Stenosis 0-39% FINDINGS: There is a patent endarterectomy in the left system with no evidence of restenosis. There is no obvious atherosclerotic changes noted in the visualized portion of the right carotid artery system. cc: Stefanie Cr MD
[2018-11-27] MEDS: HUMULIN R SUBQ SCH ×3 (01:55→10:58)
[2018-11-27] MEDS: 1/2 NS 1,000 ML IV SCH ×2 (02:36→10:53)
[2018-11-27 06:34] LABS: BASO# 0.05 X1000 (0.0-0.2); BASO% 0.9 % (0.0-0.8); EOS% 7.5 % (0.0-10.0); HEMATOCRIT 32.9 % (37.0-47.0); HEMOGLOBIN 10.5 g/dL (12.0-16.0); LYMPH# 2.22 X1000 (1.2-3.4); LYMPH% 41.9 % (20.5-51.1); MCH 29.2 PG (27-31); MCHC 31.9 g/dL (33-37); MCV 91.6 FL (81-99); MONO% 5.7 % (1.7-9.3); MPV 9.5 FL (7.4-10.4); NEUT# 2.33 X1000 (1.4-6.5); PLT 147 X1000 (130-400); RBC 3.59 XMIL (4.2-5.4); RDW 13.5 % (11.5-14.5)
[2018-11-27 06:57] LABS: AGAP 6; ALB/GLOB RATIO 1.5; ALBUMIN 3.1 g/dL (3.5-5.0); ALKALINE PHOSPHATASE 93 U/L (32-104); BUN 11 mg/dL (8-22); CALCIUM 8.2 mg/dL (8.8-10.2); CHLORIDE 109 mmol/L (98-107); COSMO 284; CREATININE 0.8 mg/dL (0.5-0.9); ESTIMATED GFR > 60; GLUCOSE 185 mg/dL (70-104); GOT 19 U/L (10-30); GPT 11 U/L (10-36); POTASSIUM 4.7 mmol/L (3.5-5.1); SODIUM 140 mmol/L (136-145); TCO2 25 mmol/L (25-35); TOTAL BILIRUBIN < 0.15 mg/dL (0.20-1.00); TOTAL PROTEIN 5.2 g/dL (6.3-8.3)
[2018-11-27 07:56] VITALS: BP 119/54
[2018-11-27] MEDS: HUMALOG SUBQ SCH ×2 (08:39→10:56)
[2018-11-27] MEDS: ASPIRIN PO SCH (08:39)
[2018-11-27] MEDS: DILANTIN PO SCH (08:39)
[2018-11-27] MEDS: PROTONIX IV SCH (08:39)
[2018-11-27] MEDS: HEPARIN SUBQ SCH (08:39)
[2018-11-27] MEDS: BASAGLAR SUBQ SCH (08:39)
--- NOTE | 2018-11-27 09:08 | DISCHARGE SUMMARY ---
ADMISSION DATE: 11/24/2018 DISCHARGE DATE: 11/27/2018 IDENTIFYING INFORMATION: This is a 53-year-old white female who was admitted on 11/24/2018, discharged on 11/27/2018. She has no primary care physician. 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 PAST MEDICAL HISTORY: Notable for diabetes mellitus type 1, history of being poorly controlled. Previous admissions for diabetic ketoacidosis, hypertension, history of previous multiple CVAs, status post endarterectomy, COPD, history of seizures. Patient presented to the emergency room on 11/24/2018 with elevated blood sugars. Family reported that she had not eaten since around 4:30 the day before. She had not been able to check her fingerstick blood sugars due to the fact she had been out of her strips for her glucometer. She had been sick with a cold recently, not feeling well. Patient complained of nausea and vomiting. Speech was reported to be slurred, but answering questions on arrival. The patient reported she took about 20 units of insulin prior to arrival. Noted to have some mild leukocytosis. The patient at that time was alert, oriented to person. Her speech at times slurred and certain words and sentences were hard to understand. Patient does appear to be generally weak. Did not appreciate any focal deficits or unilateral weakness on exam. Upon further examination, had some right-sided facial droop and the family had reported on her 1st arrival, but the family felt like it had been there previously. Denied any recent history of fever, body aches, chills. Denied any cough or shortness of breath or chest pain. In the emergency room, found to have mild leukocytosis. Initial chemistry showed an anion gap of 22. Her serum bicarbonate was slightly low at 21. Blood gases, pH was 7.4, serum glucose was 160, although she did have moderate serum acetone level. Patient was given a total of 3 saline boluses and some Zofran and then put her in for possible early DKA. Instructed to give the patient a meal and some orange juice and continue to follow sugars. She feels much better and is requesting to go home. OBJECTIVE: Vital Signs: Today temperature 98.1 degrees, pulse 58, respirations 16, blood pressure 119/54. Eyes: Pupils are equal. Neck: No distended neck veins. Lungs: Clear in all lung corrigan. Cardiovascular: Regular rhythm and rate without murmur or S3. URINE OUTPUT: 1300 mL. LABORATORY DATA: Reviewed from yesterday. White count 5300, hematocrit was 32, hemoglobin 10.5 with an MCV of 91. Sodium 140, potassium 4.7, chloride 109, BUN 11, creatinine 0.8. Blood sugars have stayed between 59 and 199. She reports that she has strips for her glucometer and has her insulin. She takes aspirin 81 mg a day. We did give her some ceftriaxone, although and the urine did grow out E. coli greater than 100,000. DISCHARGE INSTRUCTIONS: So, I will send her home on some Levaquin for another 5 days and have her return to her scheduled insulin. She takes NovoLog FlexPen 8 to 12 units subcutaneous t.i.d. and she takes Lantus 10 units at bedtime, Dilantin 100 mg t.i.d. and then has Phenergan as needed. We will give her Levaquin 500 mg daily for another 5 days. cc: South Lopez MD
== END 2018-11-27 11:35 | disposition home or self-care (01) | DRG 637 ==
LOC: ED 19:34 → SUATTDRO 11-24 02:22 → EDIPHOLD 11-24 02:22 → 3S 11-24 07:22
PROVIDERS: ATTEND Emergency Medicine
CPT/HCPCS: 51701; 70450; 70551; 71010; 71045; 80048; 80053; 80061; 80101; 80196; 80301; 80307; 80320; 80324; 80329; 80345; 80346; 80353; 80358; 80361; 80365; 81001; 82003; 82009; 82055; 82330; 82805; 82947; 82948; 83036; 83605; 83721; 83735; 83992; 84100; 84132; 84295; 84484; 85014; 85018; 85025; 85610; 85730; 87040; 87077; 87088; 87186; 93005; 93306; 93880; 94640; 94761; 94799; 96361; 96365; 96366; 96375; 96376; 99285; A9270; C9113; G0431; G0434; G0479; G0480; G6038; G6039; G6040; J0696; J1644; J1815; J2405; J3475; J7030; J7050; J7060; P9612; S0164; XXXXX

== ENCOUNTER 2019-02-16 16:47 | Inpatient (IN) ==
[2019-02-16 17:05] LABS: BE -25.4 mmoll (-3.0-3.0); BLOOD TYPE ARTERIAL; HCO3-(ACT) 5.1 mmoll (20.0-26.0); METHB 1.3 % (0.0-1.5); O2(CT) 17.2 mL/dL (15.0-23.0); O2HB 96.9 % (95.0-99.0); PO2(98.6) 131 mmHg (60-100); SAMPLE BLOOD; SAO2 99.8 % (95.0-100.0); THB 12.5 g/dL (11.5-17.4)
[2019-02-16 17:06] LABS: ALLEN TEST YES; MODALITY ROOM AIR
[2019-02-16 17:07] LABS: PCO2(98.6) 17 mmHg (35-45)
[2019-02-16] MEDS ORDERED: NS 1,000 ML IV ONE (17:16)
[2019-02-16] MEDS: HUMULIN R (PARKWAY) IV ONE ×2 (17:23→17:25)
[2019-02-16 17:30] LABS: HEMATOCRIT 37.5 % (37.0-47.0); HEMOGLOBIN 12.5 g/dL (12.0-16.0); MCH 31.3 PG (27-31); MCHC 33.3 g/dL (33-37); MPV 10.2 FL (7.4-10.4); RBC 3.99 XMIL (4.2-5.4); RDW 12.8 % (11.5-14.5); WBC 21.36 X1000 (4.8-10.8)
[2019-02-16 17:45] LABS: HEMOGLOBIN A1C 8.3 % (4.8-6.0)
--- NOTE | 2019-02-16 18:05 | PROVIDER DOCUMENTATION ---
This chart was entered by oKri Quiles Scribe, acting as scribe for Hector Hanson MD. HPI-General Adult - General Chief Complaint: High Blood Sugar Stated Complaint: HIGH BLOOD SUGAR Time Seen by Provider: 02/16/19 17:32 Source: patient Allergies/Adverse Reactions: Patient Allergies Allergy/AdvReac Type Severity Reaction Status Date / Time No Known Allergies Allergy Verified 11/24/18 02:40 Home Medications: Home Medication List Medication Instructions Recorded Confirmed Last Taken Type Promethazine [Phenergan] 25 mg PO PRN PRN 11/23/18 11/23/18 11/23/18 20:29 History Insulin Aspart [Novolog Flexpen] 8 - 12 units SUBQ TID 11/24/18 11/25/18 11/24/18 History Insulin Glargine [Lantus] 10 unit SUBQ QHS 11/24/18 11/25/18 11/23/18 21:00 History Phenytoin Sodium Extended 100 mg PO TID 11/24/18 11/25/18 11/23/18 21:00 History [Dilantin] Aspirin 81 mg PO DAILY chewtab 11/27/18 Unknown Rx - History of Present Illness -Gen Adult Nature of Presenting Problems: 53 y/o female presents to ED with hyperglycemia and N/V onset this morning. Pt reports her blood sugar was 700. Pt has hx DKA. Pt is alert and oriented. Location of Pain/Injury: reports: none Pain Radiation: reports: no radiation Quality of Pain: reports: none Severity: reports: moderate, severe Onset/Duration: reports: this morning Timing: reports: still present Context/Activities at Onset: reports: none Modifying Factors: improves with: nothing Associated Symptoms: reports: nausea, vomiting, other (hyperglycemia) Similar Symptoms Previously?: Yes (hx DKA) Recently seen or treated by another doctor?: No - Diabetes Related Context Context: reports: high blood sugar, prior DKA hospitalization Review of Systems - Adult - REVIEW OF SYSTEMS - ADULT Constitutional: reports: other (hyperglycemia). denies: chills, fever Eyes: reports: no symptoms reported Ears, Nose, Mouth & Throat: reports: no symptoms reported Cardiovascular: denies: chest pain, palpitations Respiratory: denies: cough, pleurisy Gastrointestinal: reports: nausea, vomiting. denies: abdominal pain, diarrhea Genitourinary: reports: no symptoms reported Musculoskeletal: denies: back pain, joint pain Integumentary: reports: no symptoms reported Neurological: reports: other (hyperglycemia). denies: dizziness/vertigo, seizure Psychiatric: reports: no symptoms reported Endocrine: reports: no symptoms reported Hematologic/Lymphatic: reports: no symptoms reported Allergic/Immunologic: reports: no symptoms reported All Other Systems: Reviewed and Negative Past History - Adult - PAST MEDICAL HISTORY-ADULT Review of Records: reports: Old Records Reviewed, Nursing Assessment Review, Medications Reviewed Major Childhood Illnesses: reports: denies history Cardiovascular: reports: HTN, hyperlipidemia Respiratory: reports: asthma, COPD Gastrointestinal: reports: denies history Obstetrical/Gynecological: reports: other (cervical cancer) Genitourinary: reports: kidney disease Musculoskeletal: reports: denies history Neurological: reports: CVA, Seizures/Epilepsy Psychiatric: reports: anxiety, depression Endocrine/Immune: reports: Diabetes Other Conditions: reports: denies history - PRIOR SURGERIES/PROCEDURES Surgical/Procedure History: reports: cholecystectomy, hysterectomy, BTL, breast (augmentation), other (cardiectomy) - IMMUNIZATION STATUS Childhood Immunizations: UTD, See Nurse Assessment Flu Vaccine: See Nurse Assessment - FAMILY HISTORY Family History: HTN - SOCIAL HISTORY Smoking: non-smoker Substance Use: none/never Alcohol Use Frequency: never Living Situation: family Physical Exam-General - PHYSICAL EXAM-ADULT Initial Vital Signs Reviewed: Yes - CONSTITUTIONAL General Appearance: alert, no apparent distress, slow to respond - EYES Eyes: PERRL/EOMI, pink conjunctivae - HEAD, EARS, NOSE, MOUTH & THROAT HENMT: normocephalic/atraumatic, moist mucous membranes, normal ENT inspection - NECK Neck: non-tender, full range of motion - RESPIRATORY Respiratory: chest non-tender, lungs clear, normal breath sounds - CARDIOVASCULAR Cardiovascular: tachycardia - GASTROINTESTINAL (ABDOMEN) Abdominal Exam: normal bowel sounds, non tender, soft, distended - MUSCULOSKELETAL Back Exam: normal inspection, no CVA tenderness, no vertebral tenderness Extremity: normal range of motion, non-tender - SKIN Integumentary: normal color, warm/dry - NEUROLOGIC Neurologic: grossly normal, other (slow to respond) - PSYCHIATRIC Psych/Mental Status: normal mood/affect, normal thought content, normal thought process, oriented x 3, other (slow to respond) Progress - PLAN OF CARE/RESULTS Progress/Plan/Lab Results: Vital Signs - 8 hr 02/16/19 16:44 Pulse Rate 103 H Respiratory Rate 19 Blood Pressure 118/62 O2 Sat by Pulse Oximetry 100 Laboratory Results - last 24 hr 02/16/19 02/16/19 02/16/19 16:46 16:46 17:18 WBC 21.36 H RBC 3.99 L Hgb 12.5 Hct 37.5 MCV 94.0 MCH 31.3 H MCHC 33.3 RDW Std Deviation 12.8 Plt Count 237 MPV 10.2 Specimen Type ARTERIAL Sample Site R RADIAL pH 7.00 L* pCO2 17 L* pO2 131 H HCO3 5.1 L Base Excess -25.4 L Oxyhemoglobin 96.9 ABG O2 Sat (Calculated) 17.2 ABG O2 Saturation 99.8 ABG Carboxyhemoglobin 1.60 ABG Methemoglobin 1.3 South Test YES A-a O2 Difference -3.0 Total Hemoglobin 12.5 Blood Gas Modality ROOM AIR FiO2 % 21.0 POC Glucose 500 H D Orders Category Date Time Status Cardiac Monitoring DIRECTED Care 02/16/19 16:42 Completed FSBS/Accucheck Result Q1H Care 02/16/19 16:42 Active Notify physician if: ORDERED Care 02/16/19 16:42 Active A1C HGB W EST AVG GLUCOSE [CHEM] Stat Lab 02/16/19 17:18 Received ABG [RESP] Routine Lab 02/16/19 16:46 Completed ACETONE SERUM [CHEM] Stat Lab 02/16/19 17:18 Received BASIC METABOLIC PANEL [CHEM] Q4H Lab 02/16/19 17:18 Received BASIC METABOLIC PANEL [CHEM] Q4H Lab 02/16/19 20:45 Ordered CBC WITH NO DIFF [HEME] Stat Lab 02/16/19 17:18 Completed COMPREHENSIVE METABOLIC PANEL [CHEM] Stat Lab 02/16/19 17:18 Received LACTATE, PLASMA [CHEM] Stat Lab 02/16/19 17:20 Received MAGNESIUM [CHEM] Lab 02/16/19 20:45 Uncollected MAGNESIUM [CHEM] Stat Lab 02/16/19 17:18 Received PHOSPHORUS [CHEM] Q4H Lab 02/16/19 17:18 Received PHOSPHORUS [CHEM] Q4H Lab 02/16/19 20:45 Ordered 0.9% Sodium Chloride Inj [Ns] 1,000 ml Med 02/16/19 17:16 Active IV 999 mls/hr Insulin Human Regular ([place] [Humulin R ([place])] Med 02/16/19 17:14 Discontinued 15 units IV NOW ONE Transfer/Admit Order [TRANSFER] Routine Transfer 02/16/19 17:28 Ordered Result Diagrams: 02/16/19 17:18 - XRAY 1 XRAY Study: Chest Impression: See EMR Report - CONSULTS/PCP/HOSPITALIST Notification #1 *Consult/PCP/Hospitalist*: Dr. Ramsey Reason/Comments: DKA Consult Disposition: Admit Departure - Departure Date of Disposition Decision: 02/16/19 Time of Disposition Decision: 17:36 DIAGNOSIS: DKA (diabetic ketoacidoses) Qualifiers: Diabetes mellitus type: other specified (including YOSEF) Diabetes mellitus complication detail: without coma Qualified Code(s): E13.10 - Other specified diabetes mellitus with ketoacidosis without coma Disposition: ADMITTED INPATIENT 09 Certified Medical Emergency: Emergent Condition: Serious - Critical Care Note This patient required my direct & personal management of CC.: Yes Attestation - Physician/ MYLES Attestation Patient care was provided by Advanced Practice Provider:: No The physician spent face to face time with patient:: Yes Advanced Practice Provider documentation review:: Supervising physician onsite and consulted in the evaluation and care of this patient. The physician did have a face to face encounter with the patient. This chart was documented by the indicated scribe, (Kori Quiles Scribe) and accurately reflects the services I performed and decisions made by me, Hector Hanson MD, as attested by the provider's signature.
[2019-02-16] MEDS ORDERED: D50W SYRINGE IV PRN ×2 (18:07→21:15)
[2019-02-16] MEDS ORDERED: HUMULIN R (PARKWAY) ONE (18:08)
[2019-02-16 18:10] LABS: AGAP 37; ALBUMIN 4.2 g/dL (3.5-5.0); ALKALINE PHOSPHATASE 126 U/L (32-104); BUN 32 mg/dL (8-22); CALCIUM 8.9 mg/dL (8.8-10.2); CHLORIDE 91 mmol/L (98-107); CREATININE 1.8 mg/dL (0.5-0.9); ESTIMATED GFR 29; GOT 16 U/L (10-30); GPT 13 U/L (10-36); MAGNESIUM 2.1 mg/dL (1.5-2.7); SODIUM 133 mmol/L (136-145); TCO2 6 mmol/L (25-35); TOTAL BILIRUBIN < 0.15 mg/dL (0.20-1.00); TOTAL PROTEIN 6.8 g/dL (6.3-8.3)
[2019-02-16] MEDS ORDERED: NS 100 ML ONE (18:10)
[2019-02-16 18:11] LABS: POTASSIUM 6.3 mmol/L (3.5-5.1)
[2019-02-16 18:12] LABS: COSMO 319; GLUCOSE 918 mg/dL (70-104)
[2019-02-16] MEDS ORDERED: HUMULIN R (PARKWAY) 100 UNITS in NS 100 ML IV SCH (18:15)
[2019-02-16 18:35] LABS: INR 1.02; PROTIME 13.9 Seconds (11.0-16.0); PTT 24.3 Seconds (22.3-41.8)
[2019-02-16] MEDS ORDERED: ALBUTEROL 0.5% INH CONC FOR HYPERKALEMIA INH ONE (18:40)
[2019-02-16] MEDS: NS 1,000 ML IV SCH ×4 (19:00→22:27)
[2019-02-16] MEDS ORDERED: NS 1,000 ML ONE (19:06)
[2019-02-16] MEDS ORDERED: NS 1,000 ML IV SCH (19:15)
[2019-02-16] MEDS ORDERED: ZOFRAN IV PRN ×2 (19:57→21:15)
--- NOTE | 2019-02-16 20:01 | EKG Report ---
Test Performed on : 02/16/2019 6:28:49 PM Test Reason : elevated k Blood Pressure : / mmHG Vent. Rate : 105 BPM Atrial Rate : 105 BPM P-R Int : 148 ms QRS Dur : 080 ms QT Int : 330 ms P-R-T Axes : 084 078 058 degrees QTc Int : 436 ms Sinus tachycardia. Cannot rule out Anterior infarct , age undetermined Abnormal ECG When compared with ECG of 23-NOV-2018 20:13, Nonspecific T wave abnormality no longer evident in Lateral leads Unconfirmed Result
[2019-02-16] MEDS: ZOSYN 3.375 GM in NS 50 ML IV SCH (20:30)
[2019-02-16 20:42] LABS: CREATININE 1.9 mg/dL (0.5-0.9); POTASSIUM 3.8 mmol/L (3.5-5.1)
--- NOTE | 2019-02-16 20:42 | Diag Imaging Result Doc PS360 ---
EXAM: CHEST-PORTABLE INDICATION: r/o sepsis TECHNIQUE: One view COMPARISON: 11/24/2018 FINDINGS: The lungs are grossly clear. There is no discrete pleural fluid collection or pneumothorax. The cardiomediastinal silhouette and central vasculature are grossly unremarkable. IMPRESSION: No evidence of acute pathology by plain radiograph. Electronically signed by Cheikh Hawk 02/16/2019 8:39 PM
[2019-02-16] MEDS ORDERED: POTASSIUM CHLORIDE 10% LIQUID PO PRN (21:15)
[2019-02-16] MEDS ORDERED: SODIUM PHOSPHATE 30 MMOL in D5W 250 ML IV PRN (21:15)
[2019-02-16] MEDS ORDERED: MAGNESIUM SULFATE 2 GM/S.W.I. 2 GM/50 ML IVPB IV PRN (21:15)
[2019-02-16] MEDS ORDERED: SODIUM BICARBONATE 8.4% 100 MEQ in STERILE WATER INJ. 500 ML IV PRN (21:15)
[2019-02-16] MEDS ORDERED: POTASSIUM CHLORIDE 20% LIQUID PO PRN (21:15)
[2019-02-16] MEDS ORDERED: HUMULIN R 100 UNIT in NS 99 ML IV SCH (21:15)
[2019-02-16] MEDS ORDERED: POTASSIUM CHLORIDE 40 MEQ/SWI 40 MEQ/100 ML IVPB IV PRN (21:15)
[2019-02-16] MEDS ORDERED: HUMULIN R IV ONE (21:15)
[2019-02-16] MEDS: POTASSIUM CHLORIDE 20 MEQ/SWI 20 MEQ/100 ML IVPB IV PRN (21:18)
[2019-02-16 23:28] LABS: BILIRUBIN URINE NEGATIVE (NEGATIVE); BLOOD URINE TRACE (NEGATIVE); CLARITY CLEAR (CLEAR); COLOR YELLOW; KETONE URINE 3+(Large) mg/dL (NEGATIVE); LEUKOCYTES URINE NEGATIVE (NEGATIVE); NITRITE URINE NEGATIVE (NEGATIVE); PROTEIN URINE TRACE mg/dL (NEGATIVE); SP GRAVITY URINE 1.015; UROBILINOGEN URINE NORMAL
[2019-02-16 23:56] LABS: UR AMPHETAMINES QUAL NONE DETECTED (NONE DETECT); UR BARBITUATES QUAL PRESUMPTIVE POSITIVE (NONE DETECT); UR BENZODIAZEPIN QUAL NONE DETECTED (NONE DETECT); UR CANNABINOIDS QUAL NONE DETECTED (NONE DETECT); UR COCAINE QUAL NONE DETECTED (NONE DETECT); UR METHADONE QUAL NONE DETECTED (NONE DETECT); UR METHAMPHETAMINE QUAL NONE DETECTED (NONE DETECT); UR OPIATES QUAL NONE DETECTED (NONE DETECT); UR OXYCODONE QUAL NONE DETECTED (NONE DETECT); UR PCP QUAL NONE DETECTED (NONE DETECT); UR PROPOXYPHENE QUAL NONE DETECTED (NONE DETECT); UR TCA QUAL NONE DETECTED (NONE DETECT)
[2019-02-16 23:58] LABS: URINE BACTERIA NEGATIVE /HFP; URINE EPITHELIAL CELLS <10 /HPF (<10); URINE RBC <10 /HPF (<10); URINE SOURCE CATH; URINE WBC <10 /HPF (<10)
[2019-02-17 00:42] LABS: CALCIUM 7.2 mg/dL (8.8-10.2); CREATININE 1.7 mg/dL (0.5-0.9); POTASSIUM 4.2 mmol/L (3.5-5.1)
--- NOTE | 2019-02-17 01:06 | HISTORY AND PHYSICAL ---
CHIEF COMPLAINT: DKA. HISTORY OF PRESENT ILLNESS: The patient is a 53-year-old female who unfortunately has been admitted multiple times in the past due to hyperglycemia and diabetic ketoacidosis. This time she notes that her nausea and vomiting started this morning. States her blood sugar read high at home. In the ER, it was over 500. She was noted to be acidotic with positive acetone and therefore she will be admitted for DKA. ALLERGIES: No known drug allergies. MEDICATIONS: Phenergan, NovoLog, Lantus 10 units at bedtime, phenytoin, aspirin. PAST MEDICAL HISTORY: Diabetes, medical noncompliance, COPD, hypertension, hyperlipidemia, history of cervical cancer, history of seizures. She has had a stroke in the past. REVIEW OF SYSTEMS: The patient denies any fevers, chills. Denies coughing. States that she has generally felt bad with headaches, nausea, vomiting that started today. States that she has been taking her insulin, but is unsure what her blood sugars have been prior to today. SURGICAL HISTORY: Positive for hysterectomy, cholecystectomy, BTL, breast augmentation. FAMILY HISTORY: Positive for diabetes. SOCIAL HISTORY: Patient lives at home. She denies smoking, drinking, or using illicit substances. PHYSICAL EXAMINATION: VITAL SIGNS: She is afebrile, pulse 100-110, respiratory 19, BP 118/62, saturating 100% on room air. GENERAL: Patient is awake, alert. She is in no current respiratory distress. She is somewhat ill appearing. HEENT: Normocephalic. NECK: Supple. CARDIOVASCULAR: Tachycardia. No murmurs. CHEST: Clear. No crackles. No wheezing. ABDOMEN: Soft, nondistended. EXTREMITIES: Moves all extremities. No edema. NEUROLOGIC: No focal changes. LABORATORIES: WBCs 21. PH 7.0, pCO2 of 17, PO2 of 131. Glucose 500. ASSESSMENT: 1. Diabetic ketoacidosis. 2. Diabetes with very poor home control. 3. History of seizure disorder. 4. History of stroke. 5. Hypertension. 6. Hyperlipidemia. PLAN: We will admit patient the hospital, ICU, place her on DKA protocol and we will follow. We will place her on Zosyn as her white count is elevated. Her lactate is up, but I expect this is more due to lactic acidosis from starvation ketosis than from infection. cc: Yonny Ramsey MD
[2019-02-17] MEDS ORDERED: SODIUM BICARBONATE 8.4% ONE (01:11)
[2019-02-17] MEDS ORDERED: LEVOPHED 8 MG in D5 1/2 NS 250 ML IV SCH (01:15)
[2019-02-17] MEDS ORDERED: VANCOMYCIN IV PER PHARMACY MISC SCH (01:15)
[2019-02-17] MEDS ORDERED: VANCOMYCIN 1 GM/NS 1 GM/250 ML IVPB ONE (01:27)
[2019-02-17] MEDS: ZOSYN 3.375 GM in NS 50 ML IV SCH ×4 (01:29→20:05)
[2019-02-17] MEDS: VANCOMYCIN 1 GM/NS 1 GM/250 ML IVPB IV ONE ×2 (01:30→01:56)
[2019-02-17 01:48] LABS: BE -16.4 mmoll (-3.0-3.0); BLOOD TYPE ARTERIAL; HCO3-(ACT) 12.1 mmoll (20.0-26.0); METHB 1.3 % (0.0-1.5); O2(CT) 19.8 mL/dL (15.0-23.0); PCO2(98.6) 28 mmHg (35-45); PO2(98.6) 135 mmHg (60-100); SAMPLE BLOOD; SAO2 99.6 % (95.0-100.0); THB 14.4 g/dL (11.5-17.4)
[2019-02-17 01:50] LABS: ALLEN TEST NO; MODALITY CANNULA; pH(98.6) 7.18 (7.35-7.45)
[2019-02-17] MEDS: POTASSIUM CHLORIDE 20 MEQ/SWI 20 MEQ/100 ML IVPB IV PRN ×3 (01:54→11:07)
[2019-02-17] MEDS: NS 1,000 ML IV SCH ×5 (01:54→20:29)
[2019-02-17] MEDS ORDERED: SODIUM BICARBONATE 8.4% 100 MEQ in 1/2 NS 1,000 ML IV SCH (02:00)
[2019-02-17] MEDS ORDERED: 1/2 NS 1,000 ML ONE (02:03)
[2019-02-17] MEDS: SODIUM BICARBONATE 8.4% 100 MEQ in STERILE WATER INJ. 1,000 ML IV SCH ×3 (02:24→20:05)
[2019-02-17 05:21] LABS: CALCIUM 7.4 mg/dL (8.8-10.2); CREATININE 1.5 mg/dL (0.5-0.9); MAGNESIUM 2.2 mg/dL (1.5-2.7); POTASSIUM 3.9 mmol/L (3.5-5.1)
[2019-02-17 05:22] LABS: PHOSPHORUS 0.8 mg/dL (2.7-4.5)
[2019-02-17] MEDS: D5 1/2 NS 1,000 ML IV SCH ×3 (05:55→20:05)
[2019-02-17 08:40] LABS: CALCIUM 7.3 mg/dL (8.8-10.2); CREATININE 1.3 mg/dL (0.5-0.9); MAGNESIUM 2.2 mg/dL (1.5-2.7); PHOSPHORUS 1.4 mg/dL (2.7-4.5)
[2019-02-17] MEDS: TYLENOL PO PRN (09:17)
[2019-02-17 09:33] LABS: POTASSIUM 4.6 mmol/L (3.5-5.1)
[2019-02-17] MEDS ORDERED: MAGNESIUM SULFATE 2 GM/S.W.I. 2 GM/50 ML IVPB IV ONE (10:00)
[2019-02-17 12:58] LABS: CALCIUM 7.1 mg/dL (8.8-10.2); CREATININE 1.2 mg/dL (0.5-0.9); MAGNESIUM 2.8 mg/dL (1.5-2.7); PHOSPHORUS 3.5 mg/dL (2.7-4.5); POTASSIUM 3.6 mmol/L (3.5-5.1)
[2019-02-17] MEDS: OFIRMEV 1000 MG/ISOTONIC SOLN 1,000 MG/100 ML BOTTLE IV PRN ×2 (16:22→23:06)
[2019-02-17 16:40] LABS: CREATININE 1.2 mg/dL (0.5-0.9); MAGNESIUM 2.4 mg/dL (1.5-2.7); PHOSPHORUS 2.8 mg/dL (2.7-4.5); POTASSIUM 3.3 mmol/L (3.5-5.1)
[2019-02-17 16:43] LABS: CALCIUM 6.8 mg/dL (8.8-10.2)
[2019-02-17] MEDS ORDERED: CALCIUM GLUCONATE 1 GM in NS 50 ML IV ONE (16:45)
[2019-02-17] MEDS: VANCOMYCIN 1 GM/NS 1 GM/250 ML IVPB IV SCH (20:29)
--- NOTE | 2019-02-17 20:44 | PROGRESS NOTE ---
DATE: 02/17/2019 SUBJECTIVE: The patient notes that she is feeling a little bit better. She has not started drinking. She is still having some nausea. PHYSICAL EXAM: Vital signs: She has a T-max of 100.1 degrees, pulse 104, respiratory 18, BP 111/56. Overall, she has improved, but she is still not back to her baseline mental status. HEENT: Normocephalic. Neck: Supple. Cardiovascular: Regular rate. No murmurs. Chest: Clear, nonlabored. Abdomen: Soft, diffusely tender. Extremities: Moves all extremities. ASSESSMENT: 1. Diabetic ketoacidosis. Continues to improve. 2. Diabetes with extremely poor intentional home control. 3. Seizure disorder. 4. History of stroke. 5. Febrile illness. 6. Leukocytosis. 7. Chronic renal failure. 8. Hypernatremia. 9. Metabolic acidosis. PLAN: We will continue the patient in the hospital. Continue insulin drip. We will attempt to clear liquids. She is very brittle and will need to go very slow on changing. cc: Yonny Ramsey MD
[2019-02-17 21:00] LABS: CALCIUM 7.3 mg/dL (8.8-10.2); CREATININE 1.1 mg/dL (0.5-0.9); MAGNESIUM 2.4 mg/dL (1.5-2.7); PHOSPHORUS 2.7 mg/dL (2.7-4.5); POTASSIUM 4.4 mmol/L (3.5-5.1)
[2019-02-18 01:25] LABS: CALCIUM 7.4 mg/dL (8.8-10.2); CREATININE 1.1 mg/dL (0.5-0.9); MAGNESIUM 2.5 mg/dL (1.5-2.7); PHOSPHORUS 1.9 mg/dL (2.7-4.5); POTASSIUM 5.6 mmol/L (3.5-5.1)
[2019-02-18] MEDS: ZOSYN 3.375 GM in NS 50 ML IV SCH ×4 (01:53→20:25)
[2019-02-18] MEDS: NS 1,000 ML IV SCH ×3 (01:53→08:43)
[2019-02-18] MEDS: D5 1/2 NS 1,000 ML IV SCH (01:54)
[2019-02-18] MEDS: SODIUM BICARBONATE 8.4% 100 MEQ in STERILE WATER INJ. 1,000 ML IV SCH (04:04)
[2019-02-18 05:52] LABS: AGAP 9; BUN 8 mg/dL (8-22); CHLORIDE 110 mmol/L (98-107); COSMO 285; CREATININE 0.9 mg/dL (0.5-0.9); ESTIMATED GFR > 60; GLUCOSE 159 mg/dL (70-104); MAGNESIUM 2.1 mg/dL (1.5-2.7); POTASSIUM 3.6 mmol/L (3.5-5.1); SODIUM 142 mmol/L (136-145); TCO2 23 mmol/L (25-35)
[2019-02-18 05:55] LABS: CALCIUM 6.8 mg/dL (8.8-10.2)
[2019-02-18] MEDS: POTASSIUM CHLORIDE 20 MEQ/SWI 20 MEQ/100 ML IVPB IV PRN (07:01)
[2019-02-18] MEDS: CALTRATE 600 + D PO SCH ×2 (08:43→20:25)
[2019-02-18] MEDS: LANTUS INSULIN SUBQ SCH (08:43)
[2019-02-18 09:04] LABS: CALCIUM 7.1 mg/dL (8.8-10.2); MAGNESIUM 2.2 mg/dL (1.5-2.7); POTASSIUM 4.5 mmol/L (3.5-5.1)
[2019-02-18] MEDS: OFIRMEV 1000 MG/ISOTONIC SOLN 1,000 MG/100 ML BOTTLE IV PRN (12:37)
[2019-02-18] MEDS: HUMALOG (PARKWAY) SUBQ SCH ×2 (16:13→20:27)
[2019-02-18] MEDS: VANCOMYCIN 1 GM/NS 1 GM/250 ML IVPB IV SCH (20:26)
--- NOTE | 2019-02-18 22:53 | PROGRESS NOTE ---
DATE: 02/18/2019 SUBJECTIVE: Patient states she is still nauseated. She is asking for PICC line. Denies any fevers, chills. OBJECTIVE: T-max 100 degrees, pulse 104, respiratory 18, BP 111/56.General: Patient is awake, alert. She is in no current distress. She is still somewhat ill-appearing. HEENT: Normocephalic. Neck: Supple. Cardiovascular: Regular rhythm, positive tachycardia. Chest: Clear, decreased but nonlabored. Abdomen: Soft, diffusely tender. Extremities: Moves all extremities. No edema. ASSESSMENT: 1. Diabetic ketoacidosis. 2. Leukocytosis. 3. Hypernatremia. 4. History of seizure disorder. 5. Hypertension. 6. Hyperlipidemia. PLAN: Will continue patient in the hospital, will continue IV fluids. Will stop her insulin drip. Will place on sliding scale insulin with Lantus. Will advance her diet as tolerated. cc: Yonny Ramsey MD
[2019-02-19] MEDS: ZOSYN 3.375 GM in NS 50 ML IV SCH ×2 (01:30→11:27)
[2019-02-19] MEDS: NS 1,000 ML IV SCH ×2 (04:14→11:28)
[2019-02-19] MEDS: HUMALOG (PARKWAY) SUBQ SCH ×4 (06:27→21:46)
[2019-02-19 06:40] LABS: HEMATOCRIT 31.6 % (37.0-47.0); HEMOGLOBIN 10.4 g/dL (12.0-16.0); MCH 30.4 PG (27-31); MCHC 32.9 g/dL (33-37); MCV 92.4 FL (81-99); MPV 9.8 FL (7.4-10.4); RBC 3.42 XMIL (4.2-5.4); RDW 13.5 % (11.5-14.5); WBC 12.48 X1000 (4.8-10.8)
[2019-02-19 06:50] LABS: AGAP 7; ALKALINE PHOSPHATASE 108 U/L (32-104); AMYLASE 138 U/L (20-200); BUN 6 mg/dL (8-22); CALCIUM 7.7 mg/dL (8.8-10.2); CHLORIDE 112 mmol/L (98-107); COSMO 289; CREATININE 0.8 mg/dL (0.5-0.9); ESTIMATED GFR > 60; GLUCOSE 178 mg/dL (70-104); GOT 43 U/L (10-30); GPT 36 U/L (10-36); MAGNESIUM 2.1 mg/dL (1.5-2.7); POTASSIUM 4.9 mmol/L (3.5-5.1); SODIUM 144 mmol/L (136-145); TCO2 26 mmol/L (25-35)
[2019-02-19] MEDS: CALTRATE 600 + D PO SCH ×2 (08:57→21:45)
[2019-02-19] MEDS: LANTUS INSULIN SUBQ SCH (08:57)
--- NOTE | 2019-02-19 15:07 | PROGRESS NOTE ---
DATE: 02/19/2019 SUBJECTIVE: The patient has no major complaints. OBJECTIVE: Blood pressure is 134/64, heart rate 78, respiratory rate of 22, temperature 99 degrees, 100% on 2 L. Cardiovascular: Regular rate and rhythm. Pulmonary: Bilateral breath sounds clear to auscultation. Diminished at the bases. GI: Soft, nontender, nondistended. Bowel sounds were positive. Laboratory Data: Acetone is negative. Chemistry: Creatinine of 0.8. Sugars have been good 135, 178, 188, 191. PROBLEM LIST: 1. Diabetic ketoacidosis. That has resolved. Resume her Lantus. She says she takes 15 units in the morning. We will continue to follow. Work on improving her situation. 2. Leukocytosis. This is felt to be most likely reactive. She has no signs of infection. Blood cultures are negative. Urine is clear. She had been on vancomycin and Zosyn but has lost intravenous access. At this point, I am just going to hold antibiotics and monitor her. 3. Seizure disorder. Continue Dilantin and check a Dilantin level. DISPOSITION: Anticipate discharge tomorrow if stabilizes. cc: Marcelo Felipe MD
[2019-02-19] MEDS: TYLENOL PO PRN (21:45)
[2019-02-19] MEDS: DILANTIN PO SCH (21:45)
[2019-02-20] MEDS ORDERED: D50W SYRINGE IV ONE (01:49)
[2019-02-20] MEDS ORDERED: D50W SYRINGE ONE (01:54)
[2019-02-20] MEDS ORDERED: LOVENOX SUBQ SCH (06:00)
[2019-02-20] MEDS: DILANTIN PO SCH ×3 (06:21→21:31)
[2019-02-20] MEDS: HUMALOG (PARKWAY) SUBQ SCH ×4 (06:22→21:30)
[2019-02-20] MEDS: PRILOSEC PO SCH (06:28)
[2019-02-20 07:15] LABS: BASO# 0.02 X1000 (0.0-0.2); BASO% 0.2 % (0.0-0.8); EOS# 0.14 X1000 (0.0-0.7); EOS% 1.3 % (0.0-10.0); HEMATOCRIT 35.6 % (37.0-47.0); HEMOGLOBIN 11.7 g/dL (12.0-16.0); IMM GRAN# 0.02 X1000 (0.0-0.04); IMM GRAN% 0.2 % (0.0-0.5); LYMPH# 2.06 X1000 (1.2-3.4); LYMPH% 19.5 % (20.5-51.1); MCH 30.5 PG (27-31); MCHC 32.9 g/dL (33-37); MONO# 0.64 X1000 (0.11-0.59); MPV 9.6 FL (7.4-10.4); NEUT# 7.71 X1000 (1.4-6.5); NEUT% 72.8 % (42.2-75.2); PLT 126 X1000 (130-400); RBC 3.83 XMIL (4.2-5.4); RDW 12.9 % (11.5-14.5); WBC 10.59 X1000 (4.8-10.8)
[2019-02-20 07:39] LABS: AGAP 8; ALBUMIN 3.1 g/dL (3.5-5.0); ALKALINE PHOSPHATASE 123 U/L (32-104); BUN 8 mg/dL (8-22); CALCIUM 8.6 mg/dL (8.8-10.2); CHLORIDE 105 mmol/L (98-107); COSMO 287; CREATININE 0.8 mg/dL (0.5-0.9); DIRECT BILIRUBIN < 0.20 mg/dL (0.00-0.20); ESTIMATED GFR > 60; GLUCOSE 263 mg/dL (70-104); GOT 21 U/L (10-30); GPT 28 U/L (10-36); POTASSIUM 4.6 mmol/L (3.5-5.1); SODIUM 140 mmol/L (136-145); TCO2 28 mmol/L (25-35); TOTAL PROTEIN 5.5 g/dL (6.3-8.3)
[2019-02-20] MEDS: ASPIRIN PO SCH (10:08)
[2019-02-20] MEDS: CALTRATE 600 + D PO SCH ×2 (10:09→21:31)
[2019-02-20] MEDS: LANTUS INSULIN SUBQ SCH ×2 (10:09→10:10)
[2019-02-20] MEDS ORDERED: ROCEPHIN 1 GM in NS 50 ML IV SCH (16:30)
--- NOTE | 2019-02-20 18:17 | PROGRESS NOTE ---
DATE: 02/20/2019 SUBJECTIVE: Patient has no major complaints. OBJECTIVE: Blood pressure is 117/67, heart rate of 81, respiratory rate 18, temperature 98.6 degrees, 96% on room air.Cardiovascular: Regular rate and rhythm. Pulmonary: Bilateral breath sounds. Clear to auscultation. Gastrointestinal: Soft, nontender, nondistended. Bowel sounds are positive. Extremities: No clubbing or cyanosis. Lymphatic: No peripheral edema. Neurological: Nonfocal. LABORATORY DATA: Her white count is normal today at 10, hemoglobin and hematocrit 11 and 35, platelets of 126,000. She is off of any treatment. Her sugars are still not under control at all, still kind of wondering around the 300s and 400s. I am not really sure she is going to be able to get out of here now. She dropped to 24 yesterday, so we will continue to follow. Her exam is okay. Clear lungs. Gastrointestinal, soft, nontender. ASSESSMENT/PLAN: 1. Diabetic ketoacidosis with poorly controlled blood sugars. We will continue to follow. At least, would like to get her sugar systematically below 200 before we necessarily get her home. 2. Persistent fevers. Repeat her x-ray, urine, and follow. We have taken out her George. Encourage ambulation and monitor closely. Anticipate discharge hopefully soon. cc: Marcelo Felipe MD
[2019-02-20 18:53] LABS: BILIRUBIN URINE NEGATIVE (NEGATIVE); BLOOD URINE 4+ (NEGATIVE); CLARITY SL. CLOUDY (CLEAR); COLOR YELLOW; KETONE URINE NEGATIVE (NEGATIVE); LEUKOCYTES URINE NEGATIVE (NEGATIVE); NITRITE URINE NEGATIVE (NEGATIVE); PROTEIN URINE TRACE mg/dL (NEGATIVE); UROBILINOGEN URINE NORMAL
[2019-02-20 19:05] LABS: URINE BACTERIA NEGATIVE /HFP; URINE CAST NONE SEEN /LPF; URINE CRYSTAL NONE SEEN /HPF; URINE EPITHELIAL CELLS <10 /HPF (<10); URINE RBC TNTC /HPF (<10); URINE SOURCE CLEAN CATCH; URINE WBC <10 /HPF (<10); URINE YEAST NONE SEEN /HPF
[2019-02-21 05:55] VITALS: BP 123/57
[2019-02-21] MEDS: PRILOSEC PO SCH (06:10)
[2019-02-21] MEDS: DILANTIN PO SCH ×2 (06:10→12:01)
[2019-02-21] MEDS: HUMALOG (PARKWAY) SUBQ SCH ×2 (06:12→12:01)
[2019-02-21 06:41] LABS: AGAP 10; BUN 17 mg/dL (8-22); CALCIUM 8.3 mg/dL (8.8-10.2); CHLORIDE 105 mmol/L (98-107); COSMO 290; CREATININE 0.9 mg/dL (0.5-0.9); ESTIMATED GFR > 60; GLUCOSE 203 mg/dL (70-104); POTASSIUM 4.3 mmol/L (3.5-5.1); SODIUM 142 mmol/L (136-145); TCO2 27 mmol/L (25-35)
[2019-02-21 06:55] LABS: BASO# 0.04 X1000 (0.0-0.2); BASO% 0.5 % (0.0-0.8); EOS# 0.52 X1000 (0.0-0.7); EOS% 6.9 % (0.0-10.0); HEMATOCRIT 30.1 % (37.0-47.0); IMM GRAN# 0.02 X1000 (0.0-0.04); IMM GRAN% 0.3 % (0.0-0.5); LYMPH# 2.35 X1000 (1.2-3.4); LYMPH% 31.2 % (20.5-51.1); MCH 30.5 PG (27-31); MCHC 33.2 g/dL (33-37); MCV 91.8 FL (81-99); MONO# 0.52 X1000 (0.11-0.59); MONO% 6.9 % (1.7-9.3); MPV 9.8 FL (7.4-10.4); NEUT# 4.08 X1000 (1.4-6.5); NEUT% 54.2 % (42.2-75.2); PLT 122 X1000 (130-400); RBC 3.28 XMIL (4.2-5.4); RDW 12.4 % (11.5-14.5); WBC 7.53 X1000 (4.8-10.8)
[2019-02-21] MEDS: CALTRATE 600 + D PO SCH (08:52)
[2019-02-21] MEDS: ASPIRIN PO SCH (08:52)
--- NOTE | 2019-02-21 09:01 | Diag Imaging Result Doc PS360 ---
EXAM: CHEST-2 VIEWS - 02/21/2019 HISTORY: hypoxia TECHNIQUE: Chest two views COMPARISON: 02/16/2019 portable chest FINDINGS: Heart size is normal. There has been development of infiltrates at the bilateral lung bases, most prominent on the left. There has been development of small bilateral pleural effusions, most prominent on the left. There is no gross vascular congestion identified. There is no pneumothorax identified. IMPRESSION: Development of bibasilar infiltrates and small bilateral pleural effusions, most prominent on the left. Electronically signed by Dewey Springer 02/21/2019 8:59 AM
[2019-02-21] MEDS: LANTUS INSULIN SUBQ SCH ×2 (12:01→12:12)
[2019-02-21] MEDS ORDERED: ROCEPHIN 1 GM in NS 50 ML IV ONE (12:58)
--- NOTE | 2019-02-22 10:05 | DISCHARGE SUMMARY ---
ADMISSION DATE: 02/16/2019 DISCHARGE DATE: 02/21/2019 DISCHARGE DIAGNOSES: 1. Diabetic ketoacidosis. 2. Poorly compliant or very brittle diabetes. 3. History of seizure disorder. 4. Pneumonia. HISTORY: Briefly, this is a 53-year-old female. She is frequently here for DKA. Unfortunately, she came in with nausea, vomiting, and blood sugar above 300. [place] [address]. She was put on Zosyn empirically, although initially chest x-ray was clear. Urine was clear. DKA resolved. I think she was taken off the insulin drip by the , and transitioned back to her Lantus. When I was seeing her DKA, resumed on Lantus. Leukocytosis. She seemed to be doing okay. She did have some intermittent fevers though, 100.5 and then 100.8 on 02/19. She improved. I did start her on some Rocephin. We observed her a little bit longer because her sugars were still fairly erratic, although the day of discharge, they have gone down from 300's to 82, 183, and 197. DISCHARGE MEDICATIONS: 1. Dilantin 100 t.i.d. 2. NovoLog 8 units before meals. 3. Aspirin 81 daily. 4. Lantus 15 daily. 5. Omnicef 300 b.i.d. for 7 days. FOLLOWUP: We will continue to follow. cc: Marcelo Felipe MD
== END 2019-02-21 16:27 | disposition home health service (06) | DRG 637 ==
LOC: P.ED 16:47 → P.ICU 17:52 → SUATTDRO 17:52 → P.MEDSURG 02-19 16:05
PROVIDERS: ATTEND Internal Medicine
CPT/HCPCS: 71010; 71020; 71045; 71046; 80048; 80053; 80076; 80104; 80185; 80301; 80305; 81001; 82009; 82150; 82550; 82805; 82947; 82948; 83036; 83605; 83735; 84100; 84484; 85025; 85027; 85610; 85730; 87040; 93005; 94640; 94761; 96360; 96361; 99285; 99291; A9270; G0431; G0434; G0477; J0131; J0610; J0696; J1650; J1815; J2543; J3370; J3475; J3480; J7030; J7060; XXXXX